=== PATIENT | male | born 1940 | race Caucasian/White ===

== ENCOUNTER → 2018-01-28 14:56 | Outpatient (CLI) | payer MEDICARE, OTHER, SELFPAY ==
[2017-04-22 08:35] VITALS: BMI 26.3
--- NOTE | 2018-01-28 15:00 | RAD_ITS ---
STUDY: X-RAY CHEST REASON FOR EXAM: Male, 77 years old. Pre pacer generator change. No complaints. TECHNIQUE: PA and lateral views of the chest. COMPARISON: January 16, 2017. FINDINGS: The lungs are mildly hyperexpanded. There is no acute infiltrate or mass. There is no demonstrated pleural abnormality. Normal size heart. Table cardiac pacemaker Normal mediastinum and chayo. Normal visualized pulmonary arteries. There is atherosclerotic calcification of the aortic arch with tortuosity. There are diffuse degenerative changes of the visualized thoracic spine. Normal visualized ribs, clavicles, and shoulders. There is no demonstrated abnormality of the visualized soft tissue structures of the upper abdomen. RAD/Chest PA and Lateral IMPRESSION: No acute cardiopulmonary disease or interval change. Electronically Signed: Dilan Torres DO at 15:22 EDT Tel [phone], Service support ,
== END ==
LOC: RAD 14:59
PROVIDERS: Family Provider Family Medicine; PCP Family Medicine; Visit Provider Nurse Practitioner Family
DX: I42.0 Dilated cardiomyopathy (principal); I43 Cardiomyopathy in diseases classified elsewhere; I49.3 Ventricular premature depolarization; I25.10 Atherosclerotic heart disease of native coronary artery without angina pectoris; Z95.0 Presence of cardiac pacemaker
CPT/HCPCS: 71046

== ENCOUNTER → 2018-02-04 08:33 | Day surgery (SDC) | payer MEDICARE, OTHER, SELFPAY ==
[2017-04-22 08:35] VITALS: BMI 26.3
[2018-01-28 15:23] LABS: Bacteria 0 SEEN /hpf (None Seen); Mucous, Urine 0 SEEN /hpf (<or=2+); Squamous Epithelial Cells - UA 0 SEEN /hpf (0-5); White Blood Cells 0 SEEN /hpf (0-5)
[2018-01-28 15:55] LABS: Color, Urine Yellow (Yellow); Glucose, Dipstick Normal (Normal); Ketone-Dipstick Negative (Negative); Leukocyte Esterase-Dipstick Negative /ul (Negative); Nitrite-Dipstick Negative (Negative); Occult Blood-Urine Negative /ul (Negative); Protein-Dipstick Negative (Negative); Urine Bilirubin Dipstick Negative (Negative); Urine Clarity Clear (Clear); Urine Urobilinogen Normal (Normal)
[2018-01-28 16:11] LABS: Red Blood Cells-Urine 0-5 SEEN /hpf (0-5)
[2018-01-28 17:17] LABS: Hematocrit 37.1 % (40-54); Hemoglobin 11.9 g/dl (13.0-16.5); Mean Corp Hgb Conc 32.1 g/gl (32-36); Mean Corpuscular Hgb 28.4 pg (27.0-32.0); Mean Corpuscular Volume 88.5 fL (80-94); Platelet Count 230 K/mm3 (150-450); RBC Distribution Width CV 14.4 % (11.6-14.6); RBC Distribution Width SD 46.2 fl (35.1-43.9); Red Blood Count 4.19 M/mm3 (4.6-6.2); White Blood Count 9.2 K/mm3 (4.4-11.0)
[2018-01-28 17:20] LABS: International Normalized Ratio 1.1; Prothrombin Time (Protime)PT. 13.7 SECONDS (11.7-14.9)
[2018-01-28 17:34] LABS: Scan Indicated on CBC? Y/N NO
[2018-01-28 17:48] LABS: Anion Gap 6 (5-15); BUN 20 mg/dL (7-18); BUN/Creat Ratio 13.3 RATIO (10-20); Calcium,Total 8.3 mg/dL (8.5-10.1); Chloride 105 mmol/L (98-107); EST Glomerular Filtration Rate 48 mL/min (>60); Est Glom Filt Rate - Afr Amer 58 mL/min (>60); Glucose 99 mg/dL (74-106); Potassium 3.4 mmol/L (3.5-5.1); Sodium Level 140 mmol/L (136-145)
[2018-02-03 13:59] VITALS: BMI 27.3
--- NOTE | 2018-02-04 11:19 | OP.PCM_ITS ---
Operative Report Date of Procedure: 02/04/18 Preoperative diagnosis is device at end of life for normal battery depletion. Postoperative diagnosis same as above. After informed consent and IV antibiotics the patient was brought to the [place] catheterization laboratory and the skin over the device was prepped and draped in the usual sterile manner. Intermittent boluses of Versed, fentanyl and propofol were used for sedation and analgesia as well as 1% subcutaneous lidocaine. An incision was made over the pre-existing device. Using blunt and Bovie dissection the pocket was opened and the device was removed. Careful attention was paid not to injure the pre-existing leads. The leads were removed from the device header and they were interrogated. There is normal lead function. Hemostasis was obtained. The pocket was flushed with antibiotic solution. The sponge and needle count were correct. The new device was brought to the field. The leads were placed in the appropriate position in the header of [facility] BiV pacemaker and secured by the set screw. The leads and the device were then placed in the pocket. The pocket was closed with a deep layer of running 2-0 Vicryl, a superficial layer of running 4-0 Vicryl, skin with Steri-Strips which were covered with a rolled 4 x 4 and Tegaderm. Patient left the room with the device programmed to proper parameters and there were no complications. All lead parameters were tested and found to be functionally normal. Lead and device serial and model numbers are available in the chart documents provided by the device company [employer] representative procedure summary.
== END ==
PROVIDERS: Nurse Practitioner Family; Family Provider Family Medicine; PCP Family Medicine; Visit Provider Internal Medicine Cardiovascular Disease
DX: I42.0 Dilated cardiomyopathy (principal); Z45.010 Encounter for checking and testing of cardiac pacemaker pulse generator [battery]; I25.10 Atherosclerotic heart disease of native coronary artery without angina pectoris; I49.3 Ventricular premature depolarization; I10 Essential (primary) hypertension; E78.2 Mixed hyperlipidemia; Z79.02 Long term (current) use of antithrombotics/antiplatelets; Z79.82 Long term (current) use of aspirin; Z79.1 Long term (current) use of non-steroidal anti-inflammatories (NSAID); Z79.899 Other long term (current) drug therapy; Z95.5 Presence of coronary angioplasty implant and graft; Z87.891 Personal history of nicotine dependence
CPT/HCPCS: 33229; 36415; 80048; 81001; 85027; 85610; 99152; 99153; J3010; J7040; J7050

== ENCOUNTER → 2018-02-18 15:10 | Outpatient (CLI) | payer MEDICARE, OTHER, SELFPAY ==
[2017-04-22 08:35] VITALS: BMI 26.3
[2018-02-18 16:08] LABS: ALB/GLOB Ratio 1.1 RATIO (0.9-2.4); AST(SGOT) 11 U/L (15-37); Alanine Aminotransfer ALT/SGPT 19 U/L (16-61); Albumin, Serum 3.8 g/dL (3.2-5.0); Alkaline Phosphatase 79 U/L (45-117); Anion Gap 8 (5-15); BUN 19 mg/dL (7-18); BUN/Creat Ratio 13.9 RATIO (10-20); Calcium,Total 8.2 mg/dL (8.5-10.1); Chloride 103 mmol/L (98-107); Creatinine, Serum 1.37 mg/dL (0.70-1.30); EST Glomerular Filtration Rate 53 mL/min (>60); Est Glom Filt Rate - Afr Amer 64 mL/min (>60); Globulin 3.4 g/dL (2.2-4.2); Glucose 134 mg/dL (74-106); Potassium 3.3 mmol/L (3.5-5.1); Protein, Total 7.2 g/dL (6.4-8.2); Sodium Level 139 mmol/L (136-145); Uric Acid 5.9 mg/dL (3.5-7.2)
== END ==
PROVIDERS: Family Provider Family Medicine; PCP Family Medicine; Visit Provider Family Medicine
DX: E11.9 Type 2 diabetes mellitus without complications (principal); M10.9 Gout, unspecified
CPT/HCPCS: 36415; 80053; 84550

== ENCOUNTER → 2018-07-17 07:38 | Outpatient (CLI) | payer MEDICARE, OTHER, SELFPAY ==
[2017-04-22 08:35] VITALS: BMI 26.3
[2018-07-17 09:03] LABS: AST(SGOT) 14 U/L (15-37); Alanine Aminotransfer ALT/SGPT 23 U/L (16-61); Albumin, Serum 3.8 g/dL (3.2-5.0); Alkaline Phosphatase 65 U/L (45-117); Anion Gap 11 (5-15); BUN 24 mg/dL (7-18); BUN/Creat Ratio 15.1 RATIO (10-20); Bilirubin, Direct 0.13 mg/dL (0.00-0.30); Calcium,Total 8.9 mg/dL (8.5-10.1); Chloride 107 mmol/L (98-107); Cholesterol 192 mg/dL (200); Creatinine, Serum 1.59 mg/dL (0.70-1.30); EST Glomerular Filtration Rate 45 mL/min (>60); Est Glom Filt Rate - Afr Amer 54 mL/min (>60); Globulin 3.1 g/dL (2.2-4.2); Glucose 125 mg/dL (74-106); High Density Lipoprotein 43 mg/dL; Potassium 3.2 mmol/L (3.5-5.1); Protein, Total 6.9 g/dL (6.4-8.2); Sodium Level 144 mmol/L (136-145); Triglycerides 255 mg/dL; Very Low Density Lipoprotein 51 mg/dL (5-40)
== END ==
PROVIDERS: Family Provider Family Medicine; PCP Family Medicine; Visit Provider Internal Medicine Cardiovascular Disease
DX: I25.10 Atherosclerotic heart disease of native coronary artery without angina pectoris (principal); I10 Essential (primary) hypertension; E78.2 Mixed hyperlipidemia
CPT/HCPCS: 36415; 80048; 80061; 80076

== ENCOUNTER → 2019-03-11 07:56 | Outpatient (CLI) | payer MEDICARE, OTHER, SELFPAY ==
[2017-04-22 08:35] VITALS: BMI 26.3
[2019-01-21 13:19] VITALS: BMI 27.6
[2019-03-11 10:03] LABS: AST(SGOT) 20 U/L (15-37); Alanine Aminotransfer ALT/SGPT 42 U/L (16-61); Albumin, Serum 4.3 g/dL (3.2-5.0); Alkaline Phosphatase 61 U/L (45-117); Bilirubin, Direct 0.12 mg/dL (0.00-0.30); Cholesterol 232 mg/dL (200); High Density Lipoprotein 45 mg/dL; Protein, Total 7.3 g/dL (6.4-8.2); Triglycerides 297 mg/dL; Very Low Density Lipoprotein 59 mg/dL (5-40)
== END ==
PROVIDERS: Family Provider Family Medicine; PCP Family Medicine; Referring Provider Internal Medicine Cardiovascular Disease; Visit Provider Internal Medicine Cardiovascular Disease
DX: I25.10 Atherosclerotic heart disease of native coronary artery without angina pectoris (principal); E78.2 Mixed hyperlipidemia
CPT/HCPCS: 36415; 80061; 80076

== ENCOUNTER → 2019-05-11 07:42 | Outpatient (CLI) | payer MEDICARE, OTHER, SELFPAY ==
[2017-04-22 08:35] VITALS: BMI 26.3
[2019-04-26 09:17] VITALS: BMI 27.6
[2019-05-11 08:59] LABS: AST(SGOT) 15 U/L (15-37); Alanine Aminotransfer ALT/SGPT 32 U/L (16-61); Albumin, Serum 3.9 g/dL (3.2-5.0); Alkaline Phosphatase 85 U/L (45-117); Bilirubin, Direct 0.17 mg/dL (0.00-0.30); Cholesterol 131 mg/dL (200); Globulin 3.1 g/dL (2.2-4.2); High Density Lipoprotein 49 mg/dL; Triglycerides 177 mg/dL; Very Low Density Lipoprotein 35 mg/dL (5-40)
== END ==
PROVIDERS: Family Provider Family Medicine; PCP Family Medicine; Referring Provider Internal Medicine Cardiovascular Disease; Visit Provider Internal Medicine Cardiovascular Disease
DX: E78.5 Hyperlipidemia, unspecified (principal)
CPT/HCPCS: 36415; 80061; 80076

== ENCOUNTER → 2019-07-01 07:28 | Outpatient (CLI) | payer MEDICARE, OTHER, SELFPAY ==
[2017-04-22 08:35] VITALS: BMI 26.3
[2019-04-26 09:17] VITALS: BMI 27.6
[2019-07-01 11:10] LABS: Anion Gap 6 (5-15); BUN 24 mg/dL (7-18); BUN/Creat Ratio 15.8 RATIO (10-20); Calcium,Total 8.6 mg/dL (8.5-10.1); Chloride 109 mmol/L (98-107); Cholesterol 127 mg/dL (200); Creatinine, Serum 1.52 mg/dL (0.70-1.30); EST Glomerular Filtration Rate 47 mL/min (>60); Est Glom Filt Rate - Afr Amer 57 mL/min (>60); Glucose 125 mg/dL (74-106); High Density Lipoprotein 46 mg/dL; PSA,Total - Annual Screen 2.82 ng/mL (0.00-4.00); Potassium 3.5 mmol/L (3.5-5.1); Sodium Level 142 mmol/L (136-145); Triglycerides 128 mg/dL; Very Low Density Lipoprotein 26 mg/dL (5-40)
== END ==
PROVIDERS: Family Provider Family Medicine; PCP Family Medicine; Referring Provider Family Medicine; Visit Provider Family Medicine
DX: Z00.00 Encounter for general adult medical examination without abnormal findings (principal); E78.5 Hyperlipidemia, unspecified; Z12.5 Encounter for screening for malignant neoplasm of prostate
CPT/HCPCS: 36415; 80048; 80061; 84153; G0103

== ENCOUNTER → 2020-04-04 12:16 | Outpatient (CLI) | payer MEDICARE, OTHER, SELFPAY ==
[2017-04-22 08:35] VITALS: BMI 26.3
[2019-08-03 13:03] VITALS: BMI 28.3
[2020-04-04 15:27] LABS: Absolute Lymphocyte Count 2.27 X10^3/uL (0.83-4.51); Absolute Neutrophil Count 5.5 X10^3/uL (2.0-7.7); Basophil# 0.06 X10^3/uL; Basophil% 0.7 % (0-1); Eosinophil# 0.22 X10^3/uL; Eosinophils% 2.5 % (0-5); Hematocrit 39.3 % (40-54); Hemoglobin 12.2 g/dL (13.0-16.5); Lymphocyte # 2.27 X10^3/ul (4.0); Lymphocyte % 25.4 % (19-41); Mean Corpuscular Hgb 28.3 pg (27.0-32.0); Mean Corpuscular Volume 91.2 fL (80-94); Mean Platelet Vol. 10.9 fl (6.2-12.0); Monocyte# 0.88 X10^3/uL; Monocyte% 9.8 % (0-10); NRBC Flagged by Analyzer 0 % (0-5); Neutrophil % 61.4 % (47-70); Platelet Count 223 K/mm3 (150-450); RBC Distribution Width CV 14.1 % (11.6-14.6); RBC Distribution Width SD 47.3 fl (35.1-43.9); Red Blood Count 4.31 M/mm3 (4.6-6.2)
[2020-04-04 15:38] LABS: Anion Gap 6 (5-15); BUN 21 mg/dL (7-18); Chloride 107 mmol/L (98-107); Creatinine, Serum 1.62 mg/dL (0.70-1.30); EST Glomerular Filtration Rate 44 mL/min (>60); Est Glom Filt Rate - Afr Amer 53 mL/min (>60); Glucose 151 mg/dL (74-106); Potassium 3.8 mmol/L (3.5-5.1); Sodium Level 140 mmol/L (136-145)
== END ==
PROVIDERS: PCP Family Medicine; Referring Provider Family Medicine; Visit Provider Family Medicine
DX: R42 Dizziness and giddiness (principal)
CPT/HCPCS: 36415; 80048; 85025

== ENCOUNTER 2020-06-29 02:45 | Observation (INO) | payer MEDICARE, OTHER, SELFPAY ==
[2017-04-22 08:35] VITALS: BMI 26.3
[2019-08-03 13:03] VITALS: BMI 28.3
[2020-06-29] VITALS (14 sets, daily range): BP systolic 110–175; BP diastolic 59–91; PULSE 60–79; RESP 16–18; TEMP 36.3–37; O2SAT 94–97; BMI 27.5; BMI 26.0
--- NOTE | 2020-06-29 03:02 | CT_ITS ---
STUDY: CT BRAIN WITHOUT CONTRAST REASON FOR EXAM: Male, 80 years old. ALTERED MENTAL STATUS AND CONFUSION -- HX: HTN,HLD,PACEMAKER RADIATION DOSAGE (If Supplied By Facility): CTDIvol = ( 44.99 ) mGy, DLP = ( 829.85 ) mGycm TECHNIQUE: Transaxial CT imaging of the brain was performed without administration of intravenous contrast material. Individualized dose optimization techniques were used for this CT. COMPARISON: No relevant priors. FINDINGS: Normal soft tissue structures. Normal calvarium. There is mild cerebral atrophy with widening of the extra-axial spaces and ventricular dilatation. There are areas of decreased attenuation within the white matter tracts of the supratentorial brain, consistent with microvascular disease changes. Normal basal ganglia and thalami. Normal brainstem. There is mild cerebellar atrophy. There is no intracranial hemorrhage. There are no findings of an acute ischemic infarction. Normal visualized paranasal sinuses. There is partial calcification of the cavernous carotid arteries. CT/Brain/Head without Contrast IMPRESSION: Atrophy No Visualized evidence of acute hemorrhage infarct or edema. Electronically Signed: Larisa Dobbs MD at 4:00 EDT Tel , Service support ,
--- NOTE | 2020-06-29 03:02 | RAD_ITS ---
STUDY: X-RAY CHEST REASON FOR EXAM: Male, 80 years old. AMS TECHNIQUE: Single AP portable view x2 of the chest. COMPARISON: 01/28/2018 chest x-ray FINDINGS: There is a left-sided pacer defibrillator. The lungs are clear and expanded. There is no demonstrated pleural abnormality. There is mild cardiac enlargement. Normal mediastinum and chayo. Normal visualized pulmonary arteries. Normal visualized aortic arch and descending thoracic aorta. Normal visualized thoracic spine. Normal visualized ribs, clavicles, and shoulders. There is no demonstrated abnormality of the visualized soft tissue structures of the upper abdomen. RAD/Chest 1 View (Portable) IMPRESSION: Mild/moderate cardiac enlargement pacemaker, no visualized acute focal infiltrate. Electronically Signed: Larisa Dobbs MD at 4:22 EDT Tel , Service support ,
--- NOTE | 2020-06-29 03:02 | EKG12_ITS ---
Test Reason : Blood Pressure : / mmHG Vent. Rate : 084 BPM Atrial Rate : 068 BPM P-R Int : 174 ms QRS Dur : 158 ms QT Int : 434 ms P-R-T Axes : 000 -49 097 degrees QTc Int : 512 ms AV dual-paced rhythm Abnormal ECG Confirmed by JASPER BAJWA ([id number]), acquisition editor SHIV SALAZAR ([id number]) on 07/02/2020 2:05:56 PM Referred By: Confirmed By:JASPER BAJWA
[2020-06-29 03:10] LABS: Absolute Lymphocyte Count 2.96 X10^3/uL (0.83-4.51); Absolute Neutrophil Count 5.5 X10^3/uL (2.0-7.7); Basophil# 0.04 X10^3/uL; Basophil% 0.4 % (0-1); Eosinophil# 0.25 X10^3/uL; Eosinophils% 2.6 % (0-5); Hematocrit 41.5 % (40-54); Hemoglobin 13.6 g/dL (13.0-16.5); Lymphocyte # 2.96 X10^3/ul (4.0); Lymphocyte % 30.4 % (19-41); Mean Corp Hgb Conc 32.8 g/dL (32-36); Mean Corpuscular Hgb 29.3 pg (27.0-32.0); Mean Corpuscular Volume 89.4 fL (80-94); Mean Platelet Vol. 10.4 fl (6.2-12.0); Monocyte# 0.94 X10^3/uL; Monocyte% 9.7 % (0-10); NRBC Flagged by Analyzer 0 % (0-5); Neutrophil # 5.52 X10^3/uL (2.7-7.7); Neutrophil % 56.6 % (47-70); Platelet Count 217 K/mm3 (150-450); RBC Distribution Width SD 45.7 fl (35.1-43.9); Red Blood Count 4.64 M/mm3 (4.6-6.2); White Blood Count 9.7 K/mm3 (4.4-11.0)
[2020-06-29 03:12] LABS: Prothrombin Time (Protime)PT. 13.1 SECONDS (11.7-14.9)
[2020-06-29 03:13] LABS: Partial Thromboplast Time 25.9 Seconds (24.1-36.2)
[2020-06-29 03:28] LABS: ALB/GLOB Ratio 1.2 RATIO (0.9-2.4); AST(SGOT) 17 U/L (15-37); Alanine Aminotransfer ALT/SGPT 29 U/L (16-61); Albumin, Serum 4.1 g/dL (3.2-5.0); Alkaline Phosphatase 83 U/L (45-117); Anion Gap 9 (5-15); BUN 23 mg/dL (7-18); BUN/Creat Ratio 12.8 RATIO (10-20); Calcium,Total 8.6 mg/dL (8.5-10.1); Chloride 106 mmol/L (98-107); EST Glomerular Filtration Rate 39 mL/min (>60); Est Glom Filt Rate - Afr Amer 47 mL/min (>60); Estimated Creatinine Clearance 34.73 ml/min; Globulin 3.4 g/dL (2.2-4.2); Glucose 184 mg/dL (74-106); Potassium 3.4 mmol/L (3.5-5.1); Protein, Total 7.5 g/dL (6.4-8.2); Sodium Level 140 mmol/L (136-145)
--- NOTE | 2020-06-29 03:30 | ED.DCSUM_ITS ---
History of Present Illness Chief Complaint: Alt LOC Informant: Patient, Significant Other Onset: Today Narrative: Patient is an 80-year-old male with history of coronary artery disease and CKD presenting from home via EMS for altered mental status. About 45 minutes to 1 hour prior to arrival patient woke his up. She thought he needed to use the restroom so she tried to get him out of bed however he was confused and very weak. She states it was a generalized weakness and she did not notice any focal weakness. The was concerned he might be having a stroke so she called 911. Per EMS patient was quite out of it and uncooperative. He slowly did seem to come around during transport. Patient is still not at his baseline. He is normally ANO x3. Patient is complained of a headache but denies any other complaints at this time. There is no reports of any falls or injuries. He was fine when he went to bed last night. There have been no recent medication changes. Patient denies associated chest pain, shortness of breath or difficulty breathing. No other complaints at this time. Past Medical History - Allergies and Home Meds Allergies/Adverse Reactions: Allergies clopidogrel [From Plavix] Allergy (Verified 06/29/20 02:53) Unknown lisinopril Allergy (Verified 06/29/20 02:53) Unknown Primary Care Physician: Danny Velasquez MD [Primary Care Provider] - Past Medical History: - - Hyperlipidemia, hypertension, dilated cardiomyopathy, coronary artery disease status post stent placement Surgical History: - - Pacemaker Lives: Spouse/ Significant Other Smoking Status: Former smoker - Family History Maternal Family History: Family History (Last Reviewed 04/26/19 @ 09:[address] Elbert Marroquin DO) Mother CVA (cerebral vascular accident) Brother Cancer Hypertension Brother Cancer Sister Cancer Family History: Reports: Heart Disease, Hypertension, Stroke Paternal Family History: Family History (Last Reviewed 04/26/19 @ 09:[address] Elbert Marroquin DO) Mother CVA (cerebral vascular accident) Brother Cancer Hypertension Brother Cancer Sister Cancer Review of Systems General: Denies: Chills, Fever, Sweats Eyes: Denies: Visual changes - bilaterally, Diplopia ENT: Denies: Rhinorrhea, Sore throat Cardiovascular: Denies: Chest pain, Palpitations Respiratory: Denies: Dyspnea, Cough, Dyspnea on exertion Gastrointestinal: Denies: Abdominal pain, Nausea, Vomiting, Diarrhea, Melena, Hematochezia Genitourinary: Denies: Dysuria, Hematuria, Frequency Musculoskeletal: Denies: Back pain, Extremity Pain Skin: Denies: Rash, Wounds Neurological: Reports: Headache, Weakness - Generalized, - - Confusion. Denies: Numbness Physical Exam Vital Signs/Narrative: Vital Signs Temp Pulse Resp BP Pulse Ox 06/29/20 02:46 97.3 F L 77 16 175/91 H 94 Inital Vital Signs reviewed: Yes General: Well nourished, Well developed, No Acute Distress Head: Normocephalic, Atraumatic Eyes: Perrl, EOMI ENT: Moist mucous membranes, No rhinorrhea, TM's clear - Right?cerumen impaction Neck: Supple, Nontender Cardiovascular: Regular rate, Regular rhythm, No murmurs Respiratory: No distress, CTA bilaterally, Chest nontender Abdomen: Soft, Nontender, Nondistended, Normal bowel sounds Back: Nontender, Normal Inspection Extremities: Nontender, No edema Skin: Normal color, No rash Neurological: Alert, Cranial nerves II-XII grossly intact, Normal Strength, Normal Sensation, Disoriented - Oriented to self and time but not to place, - - Patient mildly somnolent but no focal neurologic deficits noted Psychological: Normal affect, Normal Mood Diagnostic/Tx/Re-eval Chest X-Ray - ED: 1 View, Read by Radiologist, No Acute Disease Clinical Impression(s) from Imaging Studies Brain CT 06/29/20 03:02 IMPRESSION: Atrophy No Visualized evidence of acute hemorrhage infarct or edema. Electronically Signed: Larisa Dobbs MD at 4:00 EDT Tel , Service support , Chest X-Ray 06/29/20 03:02 IMPRESSION: Mild/moderate cardiac enlargement pacemaker, no visualized acute focal infiltrate. Electronically Signed: Larisa Dobbs MD at 4:22 EDT Tel , Service support , Laboratory Data 06/29/20 06/29/20 06/29/20 02:58 02:58 02:58 WBC 9.7 RBC 4.64 Hgb 13.6 Hct 41.5 MCV 89.4 MCH 29.3 MCHC 32.8 RDW Std Deviation 45.7 H RDW Coeff of Esthela 14.0 Plt Count 217 MPV 10.4 Immature Gran % (Auto) 0.300 Neut % (Auto) 56.6 Lymph % (Auto) 30.4 [place] % (Auto) 9.7 Eos % (Auto) 2.6 Baso % (Auto) 0.4 Absolute Neuts (auto) 5.5 Absolute Lymphs (auto) 2.96 Nucleated RBC % 0 PT 13.1 INR 1.0 APTT 25.9 Sodium 140 Potassium 3.4 L Chloride 106 Carbon Dioxide 25.0 Anion Gap 9 BUN 23 H Creatinine 1.80 H Estim Creat Clear Calc 34.73 Est GFR (MDRD) Af Amer 47 L Est GFR (MDRD) Non-Af 39 L BUN/Creatinine Ratio 12.8 Glucose 184 H Calcium 8.6 Total Bilirubin 0.50 AST 17 ALT 29 Alkaline Phosphatase 83 Troponin I < 0.015 Total Protein 7.5 Albumin 4.1 Globulin 3.4 Albumin/Globulin Ratio 1.2 Urine Color Urine Clarity Urine pH Ur Specific [place] Urine Protein Urine Glucose (UA) Urine Ketones Urine Occult Blood Urine Nitrite Urine Bilirubin Urine Urobilinogen Ur Leukocyte Esterase Urine RBC Urine WBC Ur Squamous Epith Cells Urine Bacteria Urine Mucus 06/29/20 03:55 WBC RBC Hgb Hct MCV MCH MCHC RDW Std Deviation RDW Coeff of Esthela Plt Count MPV Immature Gran % (Auto) Neut % (Auto) Lymph % (Auto) [place] % (Auto) Eos % (Auto) Baso % (Auto) Absolute Neuts (auto) Absolute Lymphs (auto) Nucleated RBC % PT INR APTT Sodium Potassium Chloride Carbon Dioxide Anion Gap BUN Creatinine Estim Creat Clear Calc Est GFR (MDRD) Af Amer Est GFR (MDRD) Non-Af BUN/Creatinine Ratio Glucose Calcium Total Bilirubin AST ALT Alkaline Phosphatase Troponin I Total Protein Albumin Globulin Albumin/Globulin Ratio Urine Color Straw Urine Clarity Clear Urine pH 7.0 Ur Specific [place] 1.010 Urine Protein Negative Urine Glucose (UA) Normal Urine Ketones Negative Urine Occult Blood Negative Urine Nitrite Negative Urine Bilirubin Negative Urine Urobilinogen Normal Ur Leukocyte Esterase Negative Urine RBC 0 SEEN Urine WBC 0 SEEN Ur Squamous Epith Cells 0 SEEN Urine Bacteria 0 SEEN Urine Mucus 0 SEEN - Rhythm Strip Rhythm Strip: paced Rate: 84 Ectopy: None - EKG Initial EKG Interpretation: Paced, - - AV dual paced rhythm at a rate of 84 Normal intervals Nonspecific T wave changes Prior: Unchanged - Medical Decision Making Patient is evaluated after an episode of decreased responsiveness and generalized weakness. In the ER he seems to be improving but still slightly confused. states he is usually much more alert. Patient is complained of a mild headache but denies any other complaints at this time. He has nonfocal neurologic exam. I do not think this is a stroke. CT of the brain does not show any acute intracranial process. His work-up is largely negative. He does have an elevated creatinine however patient does have a history of CKD. Patient is ambulating emergency room and does have some mild lightheadedness but then becomes more steady on his feet. This is an improvement from how he was just prior to arrival. He is orthostatic vital signs are negative. Patient's age, c omorbidities and concerning presentation I do think he would benefit from an observation to rule out more serious cause of this episode. Differential does include cerebral vascular disease, coronary artery disease and possibly even seizure. Patient and are agreeable with this plan. Patient is given a full dose of aspirin in the emergency room. ED Disposition - Plan for ED Patient: Disposition: [facility] Diagnosis: Encephalopathy acute, CKD (chronic kidney disease), stage III, Generalized weakness Referrals: Danny Velasquez MD [Primary Care Provider] -
[2020-06-29 04:00] LABS: Bacteria 0 SEEN /hpf (None Seen); Mucous, Urine 0 SEEN /hpf (<or=2+); Red Blood Cells-Urine 0 SEEN /hpf (0-5); Squamous Epithelial Cells - UA 0 SEEN /hpf (0-5); White Blood Cells 0 SEEN /hpf (0-5)
[2020-06-29 04:01] LABS: Color, Urine Straw (Yellow); Glucose, Dipstick Normal (Normal); Ketone-Dipstick Negative (Negative); Leukocyte Esterase-Dipstick Negative /ul (Negative); Nitrite-Dipstick Negative (Negative); Occult Blood-Urine Negative /ul (Negative); Protein-Dipstick Negative (Negative); Urine Bilirubin Dipstick Negative (Negative); Urine Clarity Clear (Clear); Urine Urobilinogen Normal (Normal)
--- NOTE | 2020-06-29 05:23 | PCM.HP.STD ---
Problem List (1) Encephalopathy acute Status: Acute (2) Hyperglycemia Status: Acute (3) Mixed hyperlipidemia Status: Chronic (4) Essential hypertension Status: Chronic (5) Nonischemic cardiomyopathy Status: Chronic (6) Atherosclerotic heart disease of [place] coronary artery without angina pectoris Status: Chronic Qualifiers: [place] vs. transplanted heart: [place] heart Qualified Code(s): I25.10 - Atherosclerotic heart disease of [place] coronary artery without angina pectoris Comment: S/P PTCA/JUSTYN to RCA in April 2017; (7) Hypokalemia Status: Chronic (8) Dilated cardiomyopathy Status: Chronic (9) Biventricular cardiac pacemaker in situ Status: Chronic Comment: BIV-Pacemaker Implant February 2004; [facility] 01/13/12, BiVPM generator change (Medtronic Syncra INSPECTOR BICYCLE-P) (10) CKD (chronic kidney disease), stage III Status: Chronic History of Present Illness Date of Admission: 06/29/20 Chief Complaint: Confusion The patient is an 80 y/o M w/ PMHx: CKD stage III, HTN, HLD, CAD s/p PTCA JUSTYN mid RCA 2016, Dilated Cardiomyopathy s/p biventricular pacemaker placement, Hx frequent PVC s/p PVC ablation, Gout, OA, Former Tobacco use who presents to the [facility] ED on 06/29/20 with history of awakening approximately 1 hour prior to 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 Patient is slowly more alert in the emergency room but not to his baseline of ANO x3 and also reporting headache. Work-up in the ED included T 97.3, heart rate 77, BP 175/91, respiratory rate 16, 94% on room air, CBC with WC 9.7, hemoglobin 13.6, platelet 270 without shift, unremarkable coags, CMP with potassium 3.4, BUN/creatinine 23/1.80, glucose 184,, troponin < 0.015, EKG paced with no acute evidence of ischemia, chest x-ray with mild to moderate cardiac enlargement with pacemaker with no visualized acute focal infiltrate, CT head with atrophy evident with no visualized evidence of acute intracranial findings, urinalysis unremarkable, moderate appearing orthostatic VS assessment. Past Medical History Past Medical History (Chronic Problems): Chronic Problems (Last Reviewed 04/26/19 @ 09:[address] Elbert Marroquin DO) CKD (chronic kidney disease), stage III (Chronic) Mixed hyperlipidemia (Chronic) Essential hypertension (Chronic) Nonischemic cardiomyopathy (Chronic) Presence of stent in coronary artery (Chronic 04/21/17) [facility] w/PTCA/JUSTYN to mid RCA 04/21/17 Atherosclerotic heart disease of [place] coronary artery without angina pectoris (Chronic) S/P PTCA/JUSTYN to RCA in April 2017; Hypokalemia (Chronic) Cardiomyopathy in other diseases classified elsewhere (Chronic) Abnormal stress test (Chronic) Frequent PVCs (Chronic) Dilated cardiomyopathy (Chronic) Biventricular cardiac pacemaker in situ (Chronic) BIV-Pacemaker Implant February 2004; [facility] 01/13/12, BiVPM generator change (Medtronic Syncra INSPECTOR BICYCLE-P) Medical History: Medical History (Last Reviewed 04/26/19 @ 09:[address] Elbert Marroquin DO) Mixed hyperlipidemia (Chronic) E78.2 Essential hypertension (Chronic) I10 Premature ventricular contraction (Acute) I49.3 Nonischemic cardiomyopathy (Chronic) I42.8 Atherosclerotic heart disease of [place] coronary artery without angina pectoris (Chronic) I25.10 S/P PTCA/JUSTYN to RCA in April 2017; Hypokalemia (Chronic) E87.6 Cardiomyopathy in other diseases classified elsewhere (Chronic) I43 Frequent PVCs (Chronic) I49.3 Dilated cardiomyopathy (Chronic) I42.0 Biventricular cardiac pacemaker in situ (Chronic) Z95.0 BIV-Pacemaker Implant February 2004; [facility] 01/13/12, BiVPM generator change (Medtronic Syncra INSPECTOR BICYCLE-P) Gout M10.9 HTN (hypertension) (Inactive) I10 Hyperlipemia (Inactive) E78.5 Allergies clopidogrel [From Plavix] Allergy (Verified 06/29/20 02:53) Unknown lisinopril Allergy (Verified 06/29/20 02:53) Unknown Home Medications: Ambulatory Orders Medication Instructions Recorded Carvedilol [Coreg] 25 mg PO BID 03/31/17 Dorzolamide HCl [Trusopt] 1 drp OP DAILY 03/31/17 Aspirin E.C. [Ecotrin] 81 mg PO DAILY@0800 tab 04/22/17 celecoxib 200 mg capsule 200 mg PO DAILY #30 cap 10/18/18 clopidogrel 75 mg tablet 75 mg PO QDAY #90 tab 08/30/19 losartan 25 mg tablet 50 mg PO BID #360 tab 03/08/20 amlodipine 2.5 mg tablet 2.5 mg PO QDAY #90 tab 04/02/20 atorvastatin 20 mg tablet 20 mg PO QHS #90 tab 04/16/20 Furosemide 40 mg PO BID 06/29/20 Surgical History: Surgical History (Last Updated 11/30/19 @ 15:07 by Shyla Villanueva) Presence of stent in coronary artery (Chronic) Onset Date: 04/21/17 Z95.5 [facility] w/PTCA/JUSTYN to mid RCA 04/21/17 Postsurgical percutaneous transluminal coronary angioplasty (PTCA) status Z98.61 [facility] w/PTCA/JUSTYN to mid RCA 04/21/17 History of cardiac radiofrequency ablation Onset Date: ~05/18/16 Z98.890 Surgical History: - - Pacemaker, PCI x 1. Psychiatric History: No pertinent psych hx Lives: Spouse/ Significant Other Smoking Status: Former smoker Tobacco Use: Non-smoker Alcohol: None Drugs: None - *Family History Maternal Family History: Family History (Last Reviewed 04/26/19 @ 09:[address] Elbert Marroquin DO) Mother CVA (cerebral vascular accident) Brother Cancer Hypertension Brother Cancer Sister Cancer History Items: Heart Disease, Hypertension, Stroke Paternal Family History: Family History (Last Reviewed 04/26/19 @ 09:[address] Elbert Marroquin DO) Mother CVA (cerebral vascular accident) Brother Cancer Hypertension Brother Cancer Sister Cancer History Items: - - Father passed secondary to suicide during the depression and per patient report had no market medical history including heart disease, diabetes or cancer. Review of Systems Constitutional: Reports: Weakness, Fatigue. Denies: Anorexia, Chills, Fever, Malaise, Weight Change HEENT: Denies: Head Aches, Sinus Congestion, Sinus Drainage Cardiovascular: Denies: Chest Pain, Palpitations Respiratory: Denies: Cough, Shortness of breath at rest, Sputum production Gastrointestinal: Denies: Abdominal Pain, Nausea, Vomiting Genitourinary: Denies: Dysuria Musculoskeletal: Reports: Back Pain, Joint Pain. Denies: Joint Tenderness Skin: Reports: Skin Changes. Denies: Rash, Wounds Neurological: Reports: Confusion. Denies: Focal weakness, Numbness, Tingling Psychiatric: Denies: Anxiety, Depression, Homicidal Ideations, Suicidal Ideations Hematologic/ Lymphatic: Reports: Easy Bruising, Easy Bleeding VTE Information - Inpt Only VTE Present on Admission: No VTE Mechan Device Prophylaxis: SCD's VTE Pharm Prophylaxis ordered?: Yes Patient Problems: Active and Suspected Problems (Last Reviewed 04/26/19 @ 09:[address] Elbert Marroquin, DO) Encephalopathy acute (Acute) Hyperglycemia (Acute) Generalized weakness (Acute) Subjective: Patient seated upright in ED bed, fatigued, able to answer orientation questions including month, place, president however he did get the year wrong initially but was able to give the correct year later in the exam. Objective: Physical Examination: General: awake, alert, oriented x 3/4 but eventually gave correct year and cooperative, seated upright in ED bed in no apparent distress, fatigued. Skin: normal color, turgor, no icterus, cyanosis except except affected skin changes in patient's age status. HEENT: AT/NC, EOMI, PERRLA, moderately dry MM, no carotid bruits or JVD noted. Lungs: CTA bilaterally, moderate effort, mild decrease BL bases, no rales, ronchi or wheezing. Heart: Regular rate and rhythm; no gallop, rub audible. Abdomen: soft, NTTP, ND, normal BS, no HSM. Extremities: no cyanosis, clubbing, or edema. Neurological: patient awake, alert, oriented as noted; cognitive function improving but not exactly baseline intact; pupils equally reactive to light and accomodation; cranial nerves II-XII grossly normal, moving all 4 extremities, no focal deficits, strength preserved, sensation intact, finger-nose and heel sandhu appropriate, negative Babinski. Psychiatric: affect appears fatigued otherwise normal, no acute evidence of depressive or anxiety feelings. - Physical Exam Vitals/I&O's: Vital Signs Temp Pulse Resp BP Pulse Ox 97.3 F L 68 16 134/70 H 96 06/29/20 02:46 06/29/20 05:01 06/29/20 04:58 06/29/20 05:01 06/29/20 04:58 Oxygen Delivery Method Room Air Weight: 202 lb 13.204 oz Body Mass Index (BMI) 27.5 Laboratory Results 06/29/20 02:58: WBC 9.7, RBC 4.64, Hgb 13.6, Hct 41.5, MCV 89.4, MCH 29.3, MCHC 32.8, RDW Std Deviation 45.7 H, RDW Coeff of [place] 14.0, Plt Count 217, MPV 10.4, Immature Gran % (Auto) 0.300, Neut % (Auto) 56.6, Lymph % (Auto) 30.4, [place] % (Auto) 9.7, Eos % (Auto) 2.6, Baso % (Auto) 0.4, Absolute Neuts (auto) 5.5, Absolute Lymphs (auto) 2.96, Nucleated RBC % 0 06/29/20 02:58: PT 13.1, INR 1.0, APTT 25.9 06/29/20 02:58: Sodium 140, Potassium 3.4 L, Chloride 106, Carbon Dioxide 25.0, Anion Gap 9, BUN 23 H, Creatinine 1.80 H, Estim Creat Clear Calc 34.73, Est GFR (MDRD) Af Amer 47 L, Est GFR (MDRD) Non-Af 39 L, BUN/Creatinine Ratio 12.8, Glucose 184 H, Calcium 8.6, Total Bilirubin 0.50, AST 17, ALT 29, Alkaline Phosphatase 83, Troponin I < 0.015, Total Protein 7.5, Albumin 4.1, Globulin 3.4, Albumin/Globulin Ratio 1.2 06/29/20 03:55: Urine Color Straw, Urine Clarity Clear, Urine pH 7.0, Ur Specific [place] 1.010, Urine Protein Negative, Urine Glucose (UA) Normal, Urine Ketones Negative, Urine Occult Blood Negative, Urine Nitrite Negative, Urine Bilirubin Negative, Urine Urobilinogen Normal, Ur Leukocyte Esterase Negative, Urine RBC 0 SEEN, Urine WBC 0 SEEN, Ur Squamous Epith Cells 0 SEEN, Urine Bacteria 0 SEEN, Urine Mucus 0 SEEN Assessment/Plan All Active Problems (Last Reviewed 04/26/19 @ 09:[address] 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 1. Encephalopathy, Unclear Specific Etiology concerning for possible ? TIA/CVA: Will admit to PCU, given history of pacemaker patient not MRI candidate, defer CTA head and neck given renal disease unless further altered/worsened status, will obtain carotid US, ECHO, PT/OT/Speech/Nutrition evaluation per protocol. Will allow permissive HTN temporarily, judiciously hydrate, maintain on asa/plavix, statin w/ AM FLP, fall precautions. Will perform pacer assessment. Mag, TSH, HgbA1c, FLP pending. Ammonia level requested. May consider repeat CT head if needed. Given improving will defer ABG. May also consider EEG if no other etiology noted as patient could have had seizure and resulting confusion with postictal state. 2. Hypokalemia: Admission K+ 3.4, magnesium level requested, supplementation given, repeat level in AM. 3. Hyperglycemia: Admission glucose 184, hemoglobin A1c requested. 4. Chronic Kidney Disease Stage III: Admission BUN/Cr 23/1.80, baseline renal function 1.5-1.8 on the upper end, repeat BMP in AM. 5. CAD: s/p mid RCA PCI JUSTYN 2016, following with Dr. Easley, continue aspirin, Plavix, statin, temporarily hold home Coreg, losartan regimen for permissive HTN, resume once appropriate. 6. Dilated cardiomyopathy: Most recent echo noted in cardiology notes to be 07/2016 with EF 45% at that time, no apparent more recent noted in [facility], continue aspirin, Plavix, statin, temporarily hold Coreg, losartan, Lasix regimen for permissive HTN, resume once appropriate. 7. History frequent PVCs: Status post PVC ablation procedure at [facility] 05/28/2016, s/p pacemaker placement, most recently check noted 04/25/20. 8. Hypertension: Temporarily hold home regimen including amlodipine, Coreg, Lasix, losartan for permissive HTN, resume once appropriate. 9. Hyperlipidemia: Continue home statin regimen. 10. Former tobacco use: Encourage continued tobacco cessation. 11. DVT prophylaxis: SCDs, Lovenox. CODE status: Patient HCPOA is his and living will is currently in place. Discussed CODE status at length including difference between FULL code, DNR-CCA and DNR-CC status. Following discussions about the differences in these status, requested full CODE STATUS. Advanced Care Planning Face to Face Time: 16 minutes. OBSV E&M: 62130 Initial observation care L3 Procedures: 66466 Advncd Care Plan 30 Min
[2020-06-29] MEDS: Aspirin 81 MG TAB.CHEW 324 MG PO (05:58)
[2020-06-29] MEDS: 0.9% Normal Saline 1,000 ML 100 ML IV ×2 (06:07→07:01)
--- NOTE | 2020-06-29 06:28 | ECHOD_ITS ---
Reason For Study: Arrhythmia Procedure This was a 2D Doppler, Color Flow transthoracic echocardiogram. Exam performed portable in patient room. Left Ventricle Mildly dilated left ventricle. Mild concentric left ventricular hypertrophy. The estimated ejection fraction is 45-50 %. Septal motion consistent with IVCD. No regional wall motion abnormalities noted. Right Ventricle Normal size and thickness. ICD or pacer leads identified within the right ventricle. Normal systolic function. Atria The left atrium is mildly enlarged. Normal right atrium. ICD or pacer leads identified within the right atrium. Normal atrial septum. Mitral Valve The mitral valve is structurally normal. No prolapse or stenosis seen. Tricuspid Valve Normal tricuspid valve. Unable to estimate RV systolic pressure due to insufficient tricuspid regurgitant envelope. Aortic Valve Trisinus/trileaflet aortic valve. Mild diffuse aortic valve thickening. Mild focal aortic valve thickening. There is no aortic stenosis. Mild (1+) aortic valve insufficiency. Pulmonic Valve Normal pulmonic valve. Great Vessels Normal aortic root. Normal arch. Normal inferior vena cava. Inferior vena cava collapse with sniff. Pericardium/Pleural No pericardial effusion. MMode/2D Measurements & Calculations LVIDd: 5.5 cm IVSd: 1.3 cm LA dimension: 4.6 cm LVIDs: 4.0 cm LVPWd: 1.3 cm FS: 27.7 % LAV(MOD-bp): 69.4 ml LA A4 area: 21.5 cm2 RA A4 area: 15.2 cm2 LAV(MOD-bp) Indexed: 32.4 ml/m2 LAV(MOD-sp2): 65.8 ml LAV(MOD-sp4): 60.5 ml Time Measurements MV dec time: 0.23 sec Doppler Measurements & Calculations MV E max marco: 78.1 cm/sec Lat Peak E' Marco: 3.6 cm/sec Med Peak E' Marco: 4.6 cm/sec MV A max marco: 107.1 cm/sec E/E' lat: 21.6 E/E' med: 17.1 MV E/A: 0.73 MV V2 max: 123.3 cm/sec MV P1/2t max marco: 75.1 cm/sec Ao V2 max: 177.7 cm/sec MV max P.1 mmHg MV P1/2t: 135.7 msec Ao max P.6 mmHg MV V2 mean: 61.0 cm/sec MV dec slope: 162.1 cm/sec2 Ao V2 mean: 113.6 cm/sec MV mean P.8 mmHg MVA(P1/2t): 1.6 cm2 Ao mean P.1 mmHg MV V2 VTI: 40.9 cm Ao V2 VTI: 35.5 cm AI max marco: 328.4 cm/sec LV V1 max: 114.9 cm/sec PA V2 max: 83.8 cm/sec AI max P.1 mmHg LV V1 max P.3 mmHg LV V1 mean P.7 mmHg AI dec slope: 137.7 cm/sec2 LV V1 mean: 75.5 cm/sec AI P1/2t: 698.4 msec LV V1 VTI: 26.5 cm Interpretation Summary Mildly dilated left ventricle. Mild concentric left ventricular hypertrophy. The estimated ejection fraction is 45-50 %. The left atrium is mildly enlarged. Unable to estimate RV systolic pressure due to insufficient tricuspid regurgitant envelope. There is no aortic stenosis. Mild (1+) aortic valve insufficiency. Compared to echo report dated 08/05/2016, no appreciable changes noted. Ordering Physician: Elizabeth Dobson Referring Physician: Danny Velasquez Performed By: Jamey Verma RCS
[2020-06-29 07:22] LABS: Magnesium 2.5 mg/dL (1.6-2.6); Thyroid Stim Hormone (TSH) 3.32 uIU/mL (0.358-3.74)
[2020-06-29 09:11] LABS: Hemoglobin A1c 7.2 % (3.8-5.6)
[2020-06-29] MEDS: Clopidogrel Bisulfate 75 MG Tablet PO (10:50)
[2020-06-29] MEDS: Celecoxib 200 MG Capsule PO (10:50)
[2020-06-29] MEDS: Enoxaparin 40 MG/0.4 ML Syringe SC (10:51)
[2020-06-29] MEDS: Dorzolamide 2% 10ml Bottle 1 DRP EACH EYE (10:52)
--- NOTE | 2020-06-29 14:06 | CASEMGMT ---
Patient politely refused completing PHQ 9 with SW. Sharmin NGUYEN TRENCH DIGGING MACHINE OPERATOR
--- NOTE | 2020-06-29 15:01 | DCINST_ITS ---
- Discharge Diagnoses Current Active Problems: Current Active and Chronic Problems (Last Reviewed 04/26/19 @ 09:[address] Elbert Marroquin, DO) Encephalopathy acute (Acute) Hyperglycemia (Acute) CKD (chronic kidney disease), stage III (Chronic) Generalized weakness (Acute) You will use the following diet at home:: Calorie/Carbohydrate Controlled (specify 1200, 1400, etc) - 1800 [place] Your food should be the consistency of: Regular Your liquids should be the consistency of: Regular/Thin Discharge Activity: Return to Normal Activity Weight Bearing Status: Full weight bearing Allergies/Adverse Reactions: Allergies lisinopril Allergy (Verified 06/29/20 02:53) Unknown Medications to take at Discharge Carvedilol [Coreg] 25 mg PO BID 03/31/17 Dorzolamide HCl [Trusopt] 1 drp OP DAILY 03/31/17 Aspirin E.C. [Ecotrin] 81 mg PO DAILY@0800 tab 04/22/17 clopidogrel 75 mg tablet 75 mg PO QDAY #90 tab 08/30/19 losartan 25 mg tablet 50 mg PO BID #360 tab 03/08/20 amlodipine 2.5 mg tablet 2.5 mg PO QDAY #90 tab 04/02/20 atorvastatin 20 mg tablet 20 mg PO QHS #90 tab 04/16/20 Furosemide 40 mg PO BID 06/29/20 Primary Care Physician: Danny Velasquez MD [Primary Care Provider] - Please follow up with your Primary Care Physician in: IN 2 WEEKS Test Results: Test results from this visit will be discussed in further detail at your follow- up appointment, if applicable.
--- NOTE | 2020-06-29 15:03 | CASEMGMT ---
Per therapy, pt did well with therapy and Dr. Hoang states pt has no confusion at this time. states no concerns with taking pt home at discharge. Dodie METCALF CM
--- NOTE | 2020-06-29 17:38 | DS.PCM_ITS ---
Discharge Date and Diagnosis Date of Admission: 06/29/20 Date of Discharge: 06/29/20 - Primary Discharge Diagnosis Acute Problems: #1 acute weakness-etiology unclear #2 stage III chronic kidney disease #3 nonischemic cardiomyopathy #4 cardiac arrhythmias #5 atherosclerotic heart disease - Secondary Discharge Diagnosis Chronic Problems: Chronic Problems (Last Reviewed 04/26/19 @ 09:[address] Elbert Marroquin, DO) CKD (chronic kidney disease), stage III (Chronic) Mixed hyperlipidemia (Chronic) Essential hypertension (Chronic) Nonischemic cardiomyopathy (Chronic) Presence of stent in coronary artery (Chronic 04/21/17) [facility] w/PTCA/JUSTYN to mid RCA 04/21/17 Atherosclerotic heart disease of [place] coronary artery without angina pectoris (Chronic) S/P PTCA/JUSTYN to RCA in April 2017; Hypokalemia (Chronic) Cardiomyopathy in other diseases classified elsewhere (Chronic) Abnormal stress test (Chronic) Frequent PVCs (Chronic) Dilated cardiomyopathy (Chronic) Biventricular cardiac pacemaker in situ (Chronic) BIV-Pacemaker Implant February 2004; [facility] 01/13/12, BiVPM generator change (Medtronic Syncra FORENSIC STRUCTURAL ENGINEER-P) Hospital Course and Treatment Operations: None Procedures: 2-D Echocardiogram Summary of Care Provided: The patient is a 80 year old M who was seen in the emergency room after being brought in from his home via squad for evaluation of altered mental status, chronic to the the patient stated that he had to use the restroom at home but was too weak to get out of bed and she had to provide assistance. Work-up in the emergency room included a CT of the brain which showed no evidence of acute pathology, patient's creatinine was slightly elevated in keeping with his history of chronic kidney disease, patient's urinalysis was unremarkable. Patient's troponin was below 0.015. Patient was placed in observation status on PCU, he was seen by PT and OT who did not feel the patient required inpatient or outpatient correction services. Patient had an echocardiogram performed which showed no change in his known ischemic cardiomyopathy-his ejection fraction was intermediate. On 06/29/2020, patient was seen and examined: On examination he appeared in good health and spirits. Vital signs as documented. Skin warm and dry and without overt rashes. Neck without JVD, neck was supple, trachea midline, thyroid was normal. Lungs clear bilaterally, normal air movement was noted. Heart exam notable for regular rhythm, normal sounds and absence of murmurs, rubs or gallops. Abdomen unremarkable and without evidence of organomegaly, masses, or abdominal aortic enlargement. Bowel sounds are present, abdomen is not distended. Extremities nonedematous, no cyanosis was noted, no clubbing was noted. Neuro: Cranial nerves II through XII are grossly intact, no focal motor deficits were noted, sensation to light touch and pinprick intact, motor exam 5/5 throughout. Psych: Patient is alert and oriented x3, he does not appear anxious or depressed, he does not appear agitated. Patient appears stable for discharge home, the exact etiology of the patient's acute weakness was unknown. I talked briefly with the patient's PCP Dr. Velasquez by phone today and I also talked with the patient's production quality analyst Dr. Easley. - Physical Exam Vitals/I&O's: Vital Signs Temp Pulse Resp BP Pulse Ox 98.5 F 60 18 133/59 H 97 06/29/20 15:03 06/29/20 15:03 06/29/20 15:03 06/29/20 15:03 06/29/20 15:03 Oxygen Delivery Method Room Air Weight: 87.1 kg Body Mass Index (BMI) 26.0 Intake and Output for Last 24 Hours 06/27/20 06/28/20 06/29/20 23:59 23:59 23:59 Intake Total 330 / 330 Balance 330 / 330 Laboratory Results 06/29/20 02:58: WBC 9.7, RBC 4.64, Hgb 13.6, Hct 41.5, MCV 89.4, MCH 29.3, MCHC 32.8, RDW Std Deviation 45.7 H, RDW Coeff of [place] 14.0, Plt Count 217, MPV 10.4, Immature Gran % (Auto) 0.300, Neut % (Auto) 56.6, Lymph % (Auto) 30.4, [place] % (Auto) 9.7, Eos % (Auto) 2.6, Baso % (Auto) 0.4, Absolute Neuts (auto) 5.5, Absolute Lymphs (auto) 2.96, Nucleated RBC % 0 06/29/20 02:58: PT 13.1, INR 1.0, APTT 25.9 06/29/20 02:58: Sodium 140, Potassium 3.4 L, Chloride 106, Carbon Dioxide 25.0, Anion Gap 9, BUN 23 H, Creatinine 1.80 H, Estim Creat Clear Calc 34.73, Est GFR (MDRD) Af Amer 47 L, Est GFR (MDRD) Non-Af 39 L, BUN/Creatinine Ratio 12.8, Glucose 184 H, Calcium 8.6, Total Bilirubin 0.50, AST 17, ALT 29, Alkaline Phosphatase 83, Troponin I < 0.015, Total Protein 7.5, Albumin 4.1, Globulin 3.4, Albumin/Globulin Ratio 1.2 06/29/20 03:55: Urine Color Straw, Urine Clarity Clear, Urine pH 7.0, Ur Specific [place] 1.010, Urine Protein Negative, Urine Glucose (UA) Normal, Urine Ketones Negative, Urine Occult Blood Negative, Urine Nitrite Negative, Urine Bilirubin Negative, Urine Urobilinogen Normal, Ur Leukocyte Esterase Negative, Urine RBC 0 SEEN, Urine WBC 0 SEEN, Ur Squamous Epith Cells 0 SEEN, Urine Bacteria 0 SEEN, Urine Mucus 0 SEEN 06/29/20 06:35: Magnesium 2.5, TSH 3.32, Free T4 1.20 06/29/20 06:35: Hemoglobin A1c 7.2 H 06/29/20 06:35: Ammonia 15.0 Discharge Activity: Return to Normal Activity Weight Bearing Status: Full weight bearing Home Medications: Medications to take at Discharge Carvedilol [Coreg] 25 mg PO BID 03/31/17 Dorzolamide HCl [Trusopt] 1 drp OP DAILY 03/31/17 Aspirin E.C. [Ecotrin] 81 mg PO DAILY@0800 tab 04/22/17 clopidogrel 75 mg tablet 75 mg PO QDAY #90 tab 08/30/19 losartan 25 mg tablet 50 mg PO BID #360 tab 03/08/20 amlodipine 2.5 mg tablet 2.5 mg PO QDAY #90 tab 04/02/20 atorvastatin 20 mg tablet 20 mg PO QHS #90 tab 04/16/20 Furosemide 40 mg PO BID 06/29/20 Primary Care Physician: Danny Velasquez MD [Primary Care Provider] - Please follow up with your Primary Care Physician in: IN 2 WEEKS Disposition: Home Minutes spent on discharge:: 30 Patient Condition:: Stable Medical Necessity - Tobacco Use Smoking Status: Light Smoker (<10/day) Tobacco Use: Non-smoker Meaningful Use Info Meaningful Use Diagnoses (Choose all that apply): None applicable OBSV E&M: 52113 Observ/hosp same date L3
== END 2020-06-29 15:03 | disposition home or self-care (01) ==
LOC: ED 03:39 → PCU 05:44
PROVIDERS: Admitting Provider Family Medicine; Emergency Provider Emergency Medicine; PCP Family Medicine; Visit Provider Internal Medicine
DX: R53.1 Weakness (principal); I25.10 Atherosclerotic heart disease of native coronary artery without angina pectoris; I12.9 Hypertensive chronic kidney disease with stage 1 through stage 4 chronic kidney disease, or unspecified chronic kidney disease; N18.3 Chronic kidney disease, stage 3 (moderate); E78.2 Mixed hyperlipidemia; G93.40 Encephalopathy, unspecified; R73.9 Hyperglycemia, unspecified; I42.0 Dilated cardiomyopathy; E87.6 Hypokalemia; M19.90 Unspecified osteoarthritis, unspecified site; Z79.899 Other long term (current) drug therapy; Z79.02 Long term (current) use of antithrombotics/antiplatelets; Z79.82 Long term (current) use of aspirin; Z95.5 Presence of coronary angioplasty implant and graft; Z95.0 Presence of cardiac pacemaker; F17.200 Nicotine dependence, unspecified, uncomplicated; I35.1 Nonrheumatic aortic (valve) insufficiency; I49.9 Cardiac arrhythmia, unspecified
CPT/HCPCS: 36415; 70450; 71045; 80053; 81001; 82140; 83036; 83735; 84439; 84443; 84484; 85025; 85610; 85730; 93005; 93306; 94762; 96360; 96372; 97161; 97166; 97802; 99218; 99251; 99285; J7030; A4216; G0378; G0463

== ENCOUNTER → 2020-07-03 08:48 | Outpatient (CLI) | payer MEDICARE, OTHER, SELFPAY ==
[2017-04-22 08:35] VITALS: BMI 26.3
[2020-06-29 06:30] VITALS: BMI 26.0
[2020-07-03 10:53] LABS: Anion Gap 5 (5-15); BUN 23 mg/dL (7-18); BUN/Creat Ratio 14.9 RATIO (10-20); Calcium,Total 8.5 mg/dL (8.5-10.1); Chloride 108 mmol/L (98-107); Creatinine, Serum 1.54 mg/dL (0.70-1.30); EST Glomerular Filtration Rate 46 mL/min (>60); Est Glom Filt Rate - Afr Amer 56 mL/min (>60); Glucose 148 mg/dL (74-106); Potassium 3.8 mmol/L (3.5-5.1); Sodium Level 140 mmol/L (136-145)
== END ==
PROVIDERS: PCP Family Medicine; Referring Provider Family Medicine; Visit Provider Family Medicine
DX: I10 Essential (primary) hypertension (principal)
CPT/HCPCS: 36415; 80048

== ENCOUNTER → 2020-10-01 10:38 | Outpatient (CLI) | payer MEDICARE, OTHER, SELFPAY ==
[2017-04-22 08:35] VITALS: BMI 26.3
[2020-06-29 06:30] VITALS: BMI 26.0
[2020-10-01 13:02] LABS: Anion Gap 6 (5-15); BUN 23 mg/dL (7-18); BUN/Creat Ratio 14.2 RATIO (10-20); Calcium,Total 8.8 mg/dL (8.5-10.1); Chloride 106 mmol/L (98-107); Cholesterol 104 mg/dL (200); Creatinine, Serum 1.62 mg/dL (0.70-1.30); EST Glomerular Filtration Rate 44 mL/min (>60); Est Glom Filt Rate - Afr Amer 53 mL/min (>60); Glucose 149 mg/dL (74-106); High Density Lipoprotein 48 mg/dL; Potassium 3.5 mmol/L (3.5-5.1); Sodium Level 140 mmol/L (136-145); Triglycerides 172 mg/dL; Very Low Density Lipoprotein 34 mg/dL (5-40)
== END ==
PROVIDERS: PCP Family Medicine; Visit Provider Family Medicine
DX: I10 Essential (primary) hypertension (principal)
CPT/HCPCS: 36415; 80048; 80061

== ENCOUNTER → 2021-04-01 10:44 | Outpatient (CLI) | payer MEDICARE, OTHER, SELFPAY ==
[2017-04-22 08:35] VITALS: BMI 26.3
[2021-01-17 10:18] VITALS: BMI 25.5
--- NOTE | 2021-04-01 10:49 | RAD_ITS ---
STUDY: X-RAY - RIGHT KNEE REASON FOR EXAM: Male, 81 years old. RIGHT KNEE PAIN TECHNIQUE: 4 view(s) of the knee. COMPARISON: None. FINDINGS: Normal visualized distal femur. Normal visualized proximal tibia and fibula. Normal proximal tibiofibular articulation. There is mild degenerative arthrosis of the medial femorotibial compartment. There is severe degenerative arthrosis of the lateral femorotibial compartment with severe joint space narrowing. There is moderate degenerative arthrosis of the patellofemoral articulation. The soft tissue structures are unremarkable. RAD/Knee 4 or More Views IMPRESSION: Degenerative arthrosis. Electronically Signed: Gary Davenport MD at 8:36 EDT , Service support ,
[2021-04-01 12:40] LABS: Anion Gap 5 (5-15); BUN 26 mg/dL (7-18); BUN/Creat Ratio 14.5 RATIO (10-20); Calcium,Total 9.1 mg/dL (8.5-10.1); Chloride 107 mmol/L (98-107); Cholesterol 132 mg/dL (200); Creatinine, Serum 1.79 mg/dL (0.70-1.30); EST Glomerular Filtration Rate 39 mL/min (>60); Est Glom Filt Rate - Afr Amer 47 mL/min (>60); Glucose 171 mg/dL (74-106); High Density Lipoprotein 45 mg/dL; Potassium 3.4 mmol/L (3.5-5.1); Sodium Level 140 mmol/L (136-145); Triglycerides 241 mg/dL; Very Low Density Lipoprotein 48 mg/dL (5-40)
== END ==
PROVIDERS: PCP Family Medicine; Referring Provider Family Medicine; Visit Provider Family Medicine
DX: M25.561 Pain in right knee (principal); E11.9 Type 2 diabetes mellitus without complications
CPT/HCPCS: 36415; 73564; 80048; 80061

== ENCOUNTER → 2021-09-30 10:14 | Outpatient (CLI) | payer MEDICARE, OTHER, SELFPAY ==
[2017-04-22 08:35] VITALS: BMI 26.3
[2021-09-30 12:22] LABS: Anion Gap 7 (5-15); BUN 20 mg/dL (7-18); Calcium,Total 8.8 mg/dL (8.5-10.1); Chloride 107 mmol/L (98-107); Cholesterol 112 mg/dL (200); Creatinine, Serum 1.66 mg/dL (0.70-1.30); EST Glomerular Filtration Rate 42 mL/min (>60); Est Glom Filt Rate - Afr Amer 51 mL/min (>60); Glucose 184 mg/dL (74-106); High Density Lipoprotein 40 mg/dL; Potassium 3.7 mmol/L (3.5-5.1); Sodium Level 140 mmol/L (136-145); Triglycerides 213 mg/dL; Very Low Density Lipoprotein 43 mg/dL (5-40)
== END ==
PROVIDERS: PCP Family Medicine; Referring Provider Family Medicine; Visit Provider Family Medicine
DX: E11.9 Type 2 diabetes mellitus without complications (principal)
CPT/HCPCS: 36415; 80048; 80061

== ENCOUNTER → 2022-05-12 | Outpatient (CLI) | payer MEDICARE, OTHER, SELFPAY ==
[2017-04-22 08:35] VITALS: BMI 26.3
[2022-05-12 18:33] LABS: Anion Gap 8 (5-15); BUN 26 mg/dL (7-18); BUN/Creat Ratio 14.9 RATIO (10-20); Calcium,Total 8.9 mg/dL (8.5-10.1); Chloride 103 mmol/L (98-107); Cholesterol 100 mg/dL (200); Creatinine, Serum 1.74 mg/dL (0.70-1.30); EST Glomerular Filtration Rate 40 mL/min (>60); Est Glom Filt Rate - Afr Amer 48 mL/min (>60); Glucose 121 mg/dL (74-106); High Density Lipoprotein 36 mg/dL; Potassium 3.5 mmol/L (3.5-5.1); Sodium Level 137 mmol/L (136-145); Triglycerides 167 mg/dL; Very Low Density Lipoprotein 33 mg/dL (5-40)
== END | disposition home or self-care (01) ==
LOC: MFPLAB 14:57
PROVIDERS: PCP Family Medicine; Visit Provider Family Medicine
DX: I10 Essential (primary) hypertension (principal)
CPT/HCPCS: 36415; 80048; 80061

== ENCOUNTER → 2022-08-01 | Outpatient (CLI) | payer MEDICARE, OTHER, SELFPAY ==
[2017-04-22 08:35] VITALS: BMI 26.3
[2022-08-01 12:16] LABS: Absolute Lymphocyte Count 1.66 X10^3/uL (0.83-4.51); Absolute Neutrophil Count 5.5 X10^3/uL (2.0-7.7); Basophil# 0.05 X10^3/uL; Basophil% 0.6 % (0-1); Eosinophil# 0.16 X10^3/uL; Hematocrit 37.4 % (40-54); Hemoglobin 12.1 g/dL (13.0-16.5); Lymphocyte # 1.66 X10^3/ul (0.83-4.51); Lymphocyte % 20.4 % (19-41); Mean Corp Hgb Conc 32.4 g/dL (32-36); Mean Corpuscular Hgb 29.5 pg (27.0-32.0); Mean Corpuscular Volume 91.2 fL (80-94); Mean Platelet Vol. 11.2 fl (6.2-12.0); Monocyte% 8.6 % (0-10); NRBC Flagged by Analyzer 0 % (0-5); Neutrophil # 5.54 X10^3/uL (2.7-7.7); Neutrophil % 68.3 % (47-70); Platelet Count 206 K/mm3 (150-450); RBC Distribution Width CV 14.1 % (11.6-14.6); RBC Distribution Width SD 47.6 fl (35.1-43.9); White Blood Count 8.1 K/mm3 (4.4-11.0)
[2022-08-01 13:00] LABS: Anion Gap 9 (5-15); BUN 24 mg/dL (7-18); Calcium,Total 9.3 mg/dL (8.5-10.1); Chloride 106 mmol/L (98-107); Creatinine, Serum 1.72 mg/dL (0.70-1.30); EST Glomerular Filtration Rate 40 mL/min (>60); Est Glom Filt Rate - Afr Amer 49 mL/min (>60); Glucose 193 mg/dL (74-106); Potassium 3.4 mmol/L (3.5-5.1); Sodium Level 142 mmol/L (136-145); Thyroid Stim Hormone (TSH) 1.74 uIU/mL (0.358-3.74)
== END | disposition home or self-care (01) ==
LOC: MTLAB 09:32
PROVIDERS: PCP Family Medicine; Referring Provider Family Medicine; Visit Provider Family Medicine
DX: R63.4 Abnormal weight loss (principal)
CPT/HCPCS: 36415; 80048; 84443; 85025

== ENCOUNTER → 2022-08-14 | Outpatient (CLI) | payer MEDICARE, OTHER, SELFPAY ==
[2017-04-22 08:35] VITALS: BMI 26.3
--- NOTE | 2022-08-14 12:26 | ECHOD_ITS ---
Reason For Study: MURMUR Procedure This was a 2D Doppler, Color Flow transthoracic echocardiogram. Exam performed in department. Left Ventricle Normal LV size. Left ventricular systolic function is normal. The estimated ejection fraction is 47 %. No regional wall motion abnormalities noted. Right Ventricle Normal RV size. Normal systolic function. Atria Normal left atrium. ICD or pacer leads identified within the right atrium. Normal right atrium. Mitral Valve Normal mitral valve. Mild (1+) mitral valve insufficiency. Tricuspid Valve Normal tricuspid valve. Aortic Valve Trisinus/trileaflet aortic valve. Mild focal aortic valve calcification. Mild (1+) aortic valve insufficiency. Great Vessels Normal aortic root. The pulmonary artery is normal size. Normal inferior vena cava. Pericardium/Pleural No pericardial effusion. MMode/2D Measurements & Calculations LVIDd: 4.8 cm IVSd: 1.3 cm Ao root diam: 3.4 cm LVIDs: 4.0 cm LVPWd: 1.1 cm FS: 16.6 % LAV(MOD-bp): 66.0 ml LVAd ap4: 41.4 cm2 SV(MOD-sp4): 72.2 ml LAV(MOD-bp) Indexed: 33.9 ml/m2 LVLd ap4: 9.2 cm LAV(MOD-sp2): 62.1 ml EDV(MOD-sp4): 156.0 ml LAV(MOD-sp4): 68.4 ml EDV(sp4-el): 157.5 ml LVAs ap4: 28.3 cm2 LVLs ap4: 7.9 cm ESV(MOD-sp4): 83.8 ml ESV(sp4-el): 86.0 ml EF(MOD-sp4): 46.3 % EF(sp4-el): 45.4 % SV(sp4-el): 71.5 ml LA dimension(2D): 5.0 cm LA A4 area: 23.1 cm2 RA A4 area: 14.7 cm2 Time Measurements MV dec time: 0.32 sec Doppler Measurements & Calculations MV E max baljit: 46.1 cm/sec MV V2 max: 106.2 cm/sec MV A max baljit: 101.4 cm/sec MV max P.5 mmHg MV dec slope: 147.7 cm/sec2 MV E/A: 0.45 MV V2 mean: 53.2 cm/sec MV mean P.4 mmHg MV V2 VTI: 35.4 cm Ao V2 max: 178.2 cm/sec AI max baljit: 392.6 cm/sec LV V1 max: 95.6 cm/sec Ao max P.7 mmHg AI max P.7 mmHg LV V1 max P.7 mmHg Ao V2 mean: 122.6 cm/sec LV V1 mean P.0 mmHg Ao mean P.1 mmHg AI dec slope: 219.3 cm/sec2 LV V1 mean: 64.9 cm/sec Ao V2 VTI: 40.0 cm AI P1/2t: 524.4 msec LV V1 VTI: 25.1 cm PA V2 max: 85.8 cm/sec PA V2 mean: 58.0 cm/sec ECHO/Echo Complete Interpretation Summary Normal LV size. Left ventricular systolic function is normal. No regional wall motion abnormalities noted. The estimated ejection fraction is 47 %. Compared to previous study, the left ventricular systolic function is the same. . Ordering Physician: Danny Velasquez Referring Physician: Danny Velasquez Performed By: Jessica Lincoln RCS
== END | disposition home or self-care (01) ==
LOC: CVS 12:25
PROVIDERS: PCP Family Medicine; Referring Provider Family Medicine; Visit Provider Family Medicine
DX: R01.1 Cardiac murmur, unspecified (principal)
CPT/HCPCS: 93306

== ENCOUNTER 2022-10-31 04:27 | Emergency (ER) | payer MEDICARE, OTHER, SELFPAY ==
[2017-04-22 08:35] VITALS: BMI 26.3
[2022-10-31 04:31] VITALS: BP 127/73; PULSE 84; RESP 15; TEMP 36.7; O2SAT 95; BMI 22.7
--- NOTE | 2022-10-31 04:58 | EKG12_ITS ---
Test Reason : Alt. LOC Blood Pressure : / mmHG Vent. Rate : 074 BPM Atrial Rate : 277 BPM P-R Int : 162 ms QRS Dur : 168 ms QT Int : 514 ms P-R-T Axes : 000 -50 204 degrees QTc Int : 570 ms AV dual-paced rhythm with premature ventricular or aberrantly conducted complexes Abnormal ECG Confirmed by JACKSON KEITA, DANIELITO ([id number]), online content editor KARTHIKEYAN JARVIS ([id number]) on 11/03/2022 12:59:43 PM Referred By: Morelia Confirmed By:DANIELITO PAZ MD
--- NOTE | 2022-10-31 04:58 | CT_ITS ---
STUDY: CT BRAIN WITHOUT CONTRAST REASON FOR EXAM: Male, 82 years old patient with altered mental status RADIATION DOSAGE (If Supplied By Facility): CTDIvol = ( 44.99 ) mGy, DLP = ( 829.85 ) mGycm TECHNIQUE: Transaxial CT imaging of the brain was performed without administration of intravenous contrast material. Multiplanar reformations are submitted for interpretation. Individualized dose optimization techniques were used for this CT. COMPARISON: No relevant priors. FINDINGS: The patient is a right-sided scleral buckle and bilateral ocular lenticular implants. Normal calvarium. There is mild cerebral atrophy with widening of the extra-axial spaces and ventricular dilatation. There are areas of decreased attenuation within the white matter tracts of the supratentorial brain, consistent with microvascular disease changes. There are scattered punctate calcifications visible possibly secondary to previous infection. These are unchanged since the previous CT. Normal basal ganglia and thalami. Normal brainstem. There is mild cerebellar atrophy. There is no intracranial hemorrhage. There are no findings of an acute ischemic infarction. Normal visualized paranasal sinuses. CT/Brain/Head without Contrast IMPRESSION: 1. Chronic involutional changes of the brain. 2. No CT evidence of acute intracranial hemorrhage. Electronically Signed: Katie Perez MD at 5:36 EST ,
[2022-10-31 05:12] LABS: Bacteria 0 SEEN /hpf (None Seen); Mucous, Urine 0 SEEN /hpf (<or=2+); Red Blood Cells-Urine 0 SEEN /hpf (0-5); Squamous Epithelial Cells - UA 0 SEEN /hpf (0-5); White Blood Cells 0 SEEN /hpf (0-5)
[2022-10-31 05:14] LABS: Color, Urine Yellow (Yellow); Glucose, Dipstick Normal (Normal); Ketone-Dipstick Negative (Negative); Leukocyte Esterase-Dipstick Negative /ul (Negative); Nitrite-Dipstick Negative (Negative); Occult Blood-Urine 25 /ul (Negative); Protein-Dipstick Negative (Negative); Urine Bilirubin Dipstick Negative (Negative); Urine Clarity Clear (Clear); Urine Urobilinogen Normal (Normal)
[2022-10-31 05:14] LABS: Absolute Lymphocyte Count 2.16 X10^3/uL (0.83-4.51); Absolute Neutrophil Count 5.3 X10^3/uL (2.0-7.7); Basophil# 0.05 X10^3/uL; Basophil% 0.6 % (0-1); Eosinophil# 0.24 X10^3/uL; Eosinophils% 2.7 % (0-5); Hematocrit 37.2 % (40-54); Lymphocyte # 2.16 X10^3/ul (0.83-4.51); Lymphocyte % 24.7 % (19-41); Mean Corp Hgb Conc 32.3 g/dL (32-36); Mean Corpuscular Hgb 28.8 pg (27.0-32.0); Mean Corpuscular Volume 89.2 fL (80-94); Monocyte# 0.95 X10^3/uL; Monocyte% 10.9 % (0-10); NRBC Flagged by Analyzer 0 % (0-5); Neutrophil # 5.33 X10^3/uL (2.7-7.7); Neutrophil % 60.9 % (47-70); Platelet Count 218 K/mm3 (150-450); RBC Distribution Width CV 14.2 % (11.6-14.6); RBC Distribution Width SD 46.3 fl (35.1-43.9); Red Blood Count 4.17 M/mm3 (4.6-6.2); White Blood Count 8.8 K/mm3 (4.4-11.0)
--- NOTE | 2022-10-31 05:15 | RAD_ITS ---
STUDY: X-RAY CHEST REASON FOR EXAM: Male, 82 years old patient with altered mental status. TECHNIQUE: Single AP portable view of the chest. COMPARISON: June 29, 2020. FINDINGS: Patient left-sided intracardiac pacemaker and defibrillator. Cardiac monitoring leads are present. The lungs are clear and hyperexpanded. There is no demonstrated pleural abnormality. Normal size heart. Normal mediastinum and chayo. Normal visualized pulmonary arteries. There is atherosclerotic calcification of the aortic arch with tortuosity. Normal visualized thoracic spine. Normal visualized ribs, clavicles, and shoulders. There is no demonstrated abnormality of the visualized soft tissue structures of the upper abdomen. RAD/Chest 1 View (Portable) IMPRESSION: No radiographic evidence of acute cardiopulmonary disease. Electronically Signed: Katie Perez MD at 5:49 EST ,
[2022-10-31 05:28] LABS: International Normalized Ratio 1.1; Prothrombin Time (Protime)PT. 14.3 SECONDS (11.7-14.9)
[2022-10-31 05:29] LABS: Partial Thromboplast Time 27.4 Seconds (24.1-36.2)
[2022-10-31 05:50] LABS: AST(SGOT) 10 U/L (15-37); Alanine Aminotransfer ALT/SGPT 25 U/L (16-61); Albumin, Serum 3.6 g/dL (3.2-5.0); Alkaline Phosphatase 73 U/L (45-117); Anion Gap 9 (5-15); BUN 36 mg/dL (7-18); BUN/Creat Ratio 21.3 RATIO (10-20); Bilirubin, Direct 0.14 mg/dL (0.00-0.30); Calcium,Total 8.9 mg/dL (8.5-10.1); Chloride 108 mmol/L (98-107); Creatinine, Serum 1.69 mg/dL (0.70-1.30); EST Glomerular Filtration Rate 41 mL/min (>60); Est Glom Filt Rate - Afr Amer 50 mL/min (>60); Estimated Creatinine Clearance 34.98 ml/min; Globulin 2.9 g/dL (2.2-4.2); Glucose 119 mg/dL (74-106); Magnesium 2.3 mg/dL (1.6-2.6); Potassium 3.1 mmol/L (3.5-5.1); Protein, Total 6.5 g/dL (6.4-8.2); Sodium Level 142 mmol/L (136-145); Thyroid Stim Hormone (TSH) 3.23 uIU/mL (0.358-3.74)
[2022-10-31 06:08] VITALS: BP 111/61; PULSE 72; RESP 18
--- NOTE | 2022-10-31 06:41 | CT_ITS ---
STUDY: CTA HEAD AND NECK WITH CONTRAST REASON FOR EXAM: Male, 82 years old patient with weakness and syncope. RADIATION DOSAGE (If Supplied By Facility): CTDIvol = ( 21.89 ) mGy, DLP = ( 754.73 ) mGycm TECHNIQUE: CT angiography was performed with a multi-detector CT scanner. Data acquisition was obtained from the skull base through the vertex following intravenous administration of 100 mL of IV Isovue-370. MIP images were reconstructed from the axial data set. Post-processing of the angiographic images was performed, with multiplanar reformation and 3D reconstruction. Individualized dose optimization techniques were used for this CT. COMPARISON: No relevant priors. FINDINGS: Normal bilateral petrous carotid arteries. There is ectatic elongation and tortuosity of the right cavernous carotid artery without a demonstrated hemodynamically significant stenosis. There is ectatic elongation and tortuosity of the left cavernous carotid artery without a demonstrated hemodynamically significant stenosis. Normal right A1 segments of the anterior cerebral artery. Normal left A1 segments of the anterior cerebral artery. There may be a small aneurysm arising from the right side of the anterior communicating artery measuring about 2.7 mm in greatest dimension. Normal bilateral A2 segments of the anterior cerebral arteries. Normal right M1 and M2 segments of the middle cerebral arteries, with a normal M1 bifurcation. Normal left M1 and M2 segments of the middle cerebral arteries, with a normal M1 bifurcation. There is non-visualization of the right posterior communicating artery (PCOM). There is non-visualization of the left posterior communicating artery (PCOM). Normal bilateral vertebral arteries. Normal basilar artery with a normal basilar bifurcation. The visualized bilateral superior cerebellar (SCA) arteries are normal. Normal bilateral P1, P2 and visualized P3 segments of the posterior cerebral arteries. There is no demonstrated abnormality of the visualized brain. AORTIC ARCH: There is atherosclerotic calcific plaque formation of the aortic arch and great vessels arising from the aortic arch, without a hemodynamically significant stenosis. There is a normal origin of the brachiocephalic, left common carotid, and left subclavian arteries. RIGHT CAROTID ARTERIES: Normal right common carotid artery (CCA). There is mild atherosclerotic plaque formation with minimal narrowing of the right carotid bulb. Normal origin of the right internal carotid (ICA) artery without a hemodynamically significant stenosis. Normal visualized cervical portion of the right internal carotid artery. Normal origin of the right external carotid artery (ECA). LEFT CAROTID ARTERIES: Normal left common carotid artery (CCA). There is moderate atherosclerotic plaque formation with moderate narrowing of the carotid bulb. Normal origin of the left internal carotid (ICA) artery without a hemodynamically significant stenosis. Normal visualized cervical portion of the left internal carotid artery. Normal origin of the left external carotid artery (ECA). VERTEBRAL ARTERIES: Normal bilateral vertebral arteries. NECK ANATOMY: Lung apices appear to be clear. The thyroid has a grossly normal appearance. Visualized parotid and submandibular glands have a grossly normal appearance. The nasopharynx, oropharynx, hypopharynx and larynx have a grossly normal appearance. There are moderately severe multilevel degenerative changes of the cervical spine. Patient is edentulous. Atlantoaxial and lateral occipital relationships are within normal limits. CT/CTA Head AND Neck W/ Contrast IMPRESSION: 1. No CTA evidence for hemodynamically significant stenosis, thrombosis, or dissection. 2. 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 3. Electronically Signed: Katie Perez MD at 7:46 EST ,
[2022-10-31 07:00] VITALS: BP 138/81; PULSE 59; RESP 16; O2SAT 98
--- NOTE | 2022-10-31 07:28 | EDS_ITS ---
HPI History of Present Illness Chief Complaint: Alt LOC Narrative Narrative: Patient is an 82-year-old male from home with history of hypertension hyperlipidemia and nonischemic cardiomyopathy with biventricular pacemaker in place. Patient states that he get up to use the bathroom this evening and then awoke to him standing in the bathroom door stating that he needed to help. She states she helped him into bed and then while he was laying there he appeared to become unresponsive for short time and secondary to this she called EMS. EMS states when they arrived patient had eyes closed and would awake to voice but seemed to answer questions inappropriately. Patient's only complaint upon arrival is headache [facility] Medical History (Updated 10/31/22 @ 08:[address] Jd Thibodeaux, DO) Atherosclerotic heart disease of [place] coronary artery without angina pectoris Biventricular cardiac pacemaker in situ Cardiomyopathy in other diseases classified elsewhere Dilated cardiomyopathy Essential hypertension Frequent PVCs Gout HTN (hypertension) Hyperlipemia Hypokalemia Mixed hyperlipidemia Nonischemic cardiomyopathy Premature ventricular contraction Home Medications aspirin 81 mg tablet,delayed release 81 mg PO DAILY@0800 04/22/17 [Rx Last Taken 06/28/20 09:00] metformin 500 mg tablet 500 mg PO DAILY 01/17/21 [History Last Taken Unknown] clopidogrel 75 mg tablet 75 mg PO QDAY #90 tabs 10/08/21 [Rx Last Taken Unknown] atorvastatin 20 mg tablet 20 mg PO QHS #90 tabs 04/15/22 [Rx Last Taken Unknown] losartan 50 mg tablet 50 mg PO BID #180 tabs 08/18/22 [Rx Last Taken Unknown] carvedilol 25 mg tablet 25 mg PO DAILY 09/23/22 [History Last Taken Unknown] amlodipine 5 mg tablet 5 mg PO DAILY this is a dose increase #90 tabs 10/02/22 [Rx Last Taken Unknown] donepezil 5 mg tablet 5 mg PO DAILY 10/31/22 [History Last Taken Unknown] furosemide 40 mg tablet 40 mg PO DAILY 10/31/22 [History Last Taken Unknown] Allergy/AdvReac Type Severity Reaction Status Date / Time lisinopril Allergy Unknown Verified 10/31/22 04:36 Family History Mother CVA (cerebral vascular accident) Brother Cancer Lung cancer Hypertension Brother Cancer Sister Cancer lung cancer Surgical History History of cardiac radiofrequency ablation (~05/18/16) Postsurgical percutaneous transluminal coronary angioplasty (PTCA) status Presence of stent in coronary artery (04/21/17) Social History Smoking Status: Never smoker how long ago did patient quit smokin alcohol intake: never substance use type: does not use caffeine: Yes Type: coffee what type of physical activity do you participate in: none seatbelt use: always do you feel safe at home: Yes ROS ROS ED Constitutional Constitutional ED: Denies chills or fever(s) Eyes Eyes: Denies change in vision ENT ENT ED: Denies sore throat Cardiovascular Cardiovascular: Denies chest pain Respiratory/Chest Respiratory/Chest: Denies cough or dyspnea Gastrointestinal Gastrointestinal: Denies abdominal pain, diarrhea, nausea or vomiting Genitourinary Genitourinary ED: Denies dysuria Musculoskeletal Musculoskeletal: Denies myalgias Integumentary Denies rash Neurologic Neurologic: Reports headache(s) Hematologic/Lymphatic Hematologic/Lymphatic: Denies easy bleeding or easy bruising EXAM Physical Exam Const Vital Signs: 10/31/22 04:31 10/31/22 06:08 10/31/22 07:00 Temperature 98.1 F Temperature Source Temporal Pulse Rate 84 72 59 L Respiratory Rate 15 18 16 Blood Pressure 127/73 H 111/61 138/81 H Blood Pressure Mean 91 77 100 Pulse Ox 95 98 Oxygen Delivery Method Room Air Room Air Positive well nourished and well developed General Appearance ED: well developed HEENT Reports dry mucous membranes Mouth ED: Yes dry mucous membranes Mouth: dry mucous membranes Eyes EOMs intact bilaterally Eyes Narrative: Patient has chronic changes to his right pupil but otherwise extraocular muscles are intact and left pupil is equal and reactive to light Neck supple Neck Narrative: No nuchal rigidity or meningeal signs present Chest Wall palpation of chest normal Resp normal respiratory effort and clear to auscultation bilaterally Resp Narrative: Breath sounds are diminished throughout but overall clear to auscultation with no signs of distress Cardio regular rate and regular rhythm Rate: other Other Details: There is an occasional ectopic beat noted and radial pulses are plus 2 out of 4 bilaterally GI normal to inspection, nondistended, normoactive bowel sounds, non-tender, non- distended and no masses GI Narrative: No voluntary guarding or rigidity no pulsatile mass Auscultation: normoactive bowel sounds Palpation: soft Extremity normal to inspection Neuro CN's II-XII intact bilaterally Neuro Narrative: Patient is awake and alert to person and place but disoriented to time. There is no obvious focal weakness to either arm or leg. Cranial nerves II through XII are grossly intact. Patient would receive an NIH stroke scale score of 2 for his confusion and mild ataxia Sensorium / Orientation: alert Psych Psych Narrative: Patient has a flat affect Skin no rashes or lesions noted MDM MDM MDM Narrative Medical decision making narrative: Patient presented to the ER afebrile with stable vitals. He knew his name and his birthdate his 's name where he was at but was off on the year. There was no obvious focal neurologic deficit by exam he did have mild truncal ataxia and with the confusion scored 1 point for each of the confusion and ataxia so he was given a stroke scale score of 2. Work-up showed no brain bleed and CTA showed a possible aneurysm without dissection or severe stenosis. He also had negative viral swabs and urine sample showed no sign of infection. After being in the ER for a few hours he seemed to have improvement of his mental status spontaneously and resolution of his mild truncal ataxia. He was able to ambulate on his own without significant sway or unsteadiness. Therefore at this time as we have confirmed that his pacemaker is functioning appropriately there is no significant bleed or stenosis and no overt signs of infection or electrolyte derangement or acute on chronic kidney disease and is also been able to ambulate at his baseline I do not believe that admission would benefit him at this time. Patient states he also wishes to return home and will follow-up with his family doctor on outpatient basis. Therefore patient will be advised to continue his medication and follow-up with his family doctor for repeat evaluation. He and are agreeable to this plan and therefore will be discharged at this time. Lab Data Attestation: I reviewed the patient's lab results. Labs: Laboratory Results - last 24 hr 10/31/22 10/31/22 10/31/22 04:18 04:18 04:18 WBC 8.8 RBC 4.17 L Hgb 12.0 L Hct 37.2 L MCV 89.2 MCH 28.8 MCHC 32.3 RDW Std Deviation 46.3 H RDW Coeff of Esthela 14.2 Plt Count 218 MPV 11.0 Immature Gran % (Auto) 0.200 Neut % (Auto) 60.9 Lymph % (Auto) 24.7 [place] % (Auto) 10.9 H Eos % (Auto) 2.7 Baso % (Auto) 0.6 Absolute Neuts (auto) 5.3 Absolute Lymphs (auto) 2.16 Nucleated RBC % 0 PT 14.3 INR 1.1 APTT 27.4 Sodium 142 Potassium 3.1 L Chloride 108 H Carbon Dioxide 25.0 Anion Gap 9 BUN 36 H Creatinine 1.69 H Estim Creat Clear Calc 34.98 Est GFR (MDRD) Af Amer 50 L Est GFR (MDRD) Non-Af 41 L BUN/Creatinine Ratio 21.3 H Glucose 119 H Calcium 8.9 Magnesium 2.3 Total Bilirubin 0.40 Direct Bilirubin 0.14 AST 10 L ALT 25 Alkaline Phosphatase 73 Ammonia Total Protein 6.5 Albumin 3.6 Globulin 2.9 TSH 3.23 Urine Color Urine Clarity Urine pH Ur Specific Roulette Urine Protein Urine Glucose (UA) Urine Ketones Urine Occult Blood Urine Nitrite Urine Bilirubin Urine Urobilinogen Ur Leukocyte Esterase Urine RBC Urine WBC Ur Squamous Epith Cells Urine Bacteria Urine Mucus 10/31/22 10/31/22 04:18 04:50 WBC RBC Hgb Hct MCV MCH MCHC RDW Std Deviation RDW Coeff of Esthela Plt Count MPV Immature Gran % (Auto) Neut % (Auto) Lymph % (Auto) [place] % (Auto) Eos % (Auto) Baso % (Auto) Absolute Neuts (auto) Absolute Lymphs (auto) Nucleated RBC % PT INR APTT Sodium Potassium Chloride Carbon Dioxide Anion Gap BUN Creatinine Estim Creat Clear Calc Est GFR (MDRD) Af Amer Est GFR (MDRD) Non-Af BUN/Creatinine Ratio Glucose Calcium Magnesium Total Bilirubin Direct Bilirubin AST ALT Alkaline Phosphatase Ammonia 14.0 Total Protein Albumin Globulin TSH Urine Color Yellow Urine Clarity Clear Urine pH 7.0 Ur Specific Roulette 1.010 Urine Protein Negative Urine Glucose (UA) Normal Urine Ketones Negative Urine Occult Blood 25 H Urine Nitrite Negative Urine Bilirubin Negative Urine Urobilinogen Normal Ur Leukocyte Esterase Negative Urine RBC 0 SEEN Urine WBC 0 SEEN Ur Squamous Epith Cells 0 SEEN Urine Bacteria 0 SEEN Urine Mucus 0 SEEN Radiography Diagnostic Testing: Clinical Impression(s) from Imaging Studies Brain CT 10/31/22 04:58 IMPRESSION: 1. Chronic involutional changes of the brain. 2. No CT evidence of acute intracranial hemorrhage. Electronically Signed: Katie Perez MD at 5:36 EST , Chest X-Ray 10/31/22 05:15 IMPRESSION: No radiographic evidence of acute cardiopulmonary disease. Electronically Signed: Katie Perez MD at 5:49 EST , Head/Neck CTA 10/31/22 06:41 IMPRESSION: 1. No CTA evidence for hemodynamically significant stenosis, thrombosis, or dissection. 2. 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 3. Electronically Signed: Katie Perez MD at 7:46 EST , Chest x-ray as interpreted by the emergency medicine physician reveals no acute infiltrate pneumothorax or pleural effusion Discharge Plan Triage Chief Complaint: Alt LOC ED Provider: Jd Thibodeaux Dx/Rx/DC Orders Clinical Impression: Mental status change resolved, Essential hypertension, CKD (chronic kidney disease), stage III, Cephalgia Instructions: ED Confusion Prescriptions: No Action metformin 500 mg tablet 500 mg PO DAILY carvedilol 25 mg tablet 25 mg PO DAILY Rx Instructions: must administer with a meal/food aspirin 81 MG tablet 81 mg PO DAILY@0800 0RF donepezil 5 mg Tablet 5 mg PO DAILY furosemide 40 mg tablet 40 mg PO DAILY clopidogrel 75 mg tablet 75 mg PO QDAY Qty: 90 3RF atorvastatin 20 mg tablet 20 mg PO QHS Qty: 90 3RF losartan 50 mg tablet 50 mg PO BID Qty: 180 3RF amlodipine 5 mg tablet 5 mg PO DAILY Qty: 90 3RF Primary Care Provider: Danny Velasquez Referrals: Danny Velasquez MD [Primary Care Provider] - Activity Restrictions/Additional Instructions: Please return to the ER should you have any further concerns and continue all your medication as previously directed Disposition Disposition: Home, Self Care
[2022-10-31 08:00] VITALS: BP 117/63; PULSE 77; RESP 17; O2SAT 99
[2022-10-31] MEDS: Aspirin 325 MG Tablet PO (08:27)
[2022-10-31 08:37] VITALS: BP 120/58; PULSE 72; RESP 16; TEMP 36.5; O2SAT 99
== END 2022-10-31 08:39 | disposition home or self-care (01) ==
PROVIDERS: Emergency Provider Emergency Medicine; PCP Family Medicine; Visit Provider Emergency Medicine
DX: R41.82 Altered mental status, unspecified (principal); I42.0 Dilated cardiomyopathy; N18.30 Chronic kidney disease, stage 3 unspecified; R27.0 Ataxia, unspecified; I25.10 Atherosclerotic heart disease of native coronary artery without angina pectoris; I12.9 Hypertensive chronic kidney disease with stage 1 through stage 4 chronic kidney disease, or unspecified chronic kidney disease; R51.9 Headache, unspecified; E78.2 Mixed hyperlipidemia; Z79.82 Long term (current) use of aspirin; Z79.02 Long term (current) use of antithrombotics/antiplatelets; Z79.899 Other long term (current) drug therapy; Z95.0 Presence of cardiac pacemaker; Z95.5 Presence of coronary angioplasty implant and graft
CPT/HCPCS: 70450; 70496; 70498; 71045; 80048; 80076; 81001; 82140; 83735; 84443; 85025; 85610; 85730; 87428; 93005; 96360; 99285; J7040; Q9967; A4216

== ENCOUNTER → 2022-11-20 | Outpatient (CLI) | payer MEDICARE, OTHER, SELFPAY ==
[2017-04-22 08:35] VITALS: BMI 26.3
[2022-11-20 16:34] LABS: Anion Gap 8 (5-15); BUN 31 mg/dL (7-18); BUN/Creat Ratio 16.9 RATIO (10-20); Calcium,Total 8.8 mg/dL (8.5-10.1); Chloride 105 mmol/L (98-107); Cholesterol 125 mg/dL (200); Creatinine, Serum 1.83 mg/dL (0.70-1.30); EST Glomerular Filtration Rate 38 mL/min (>60); Est Glom Filt Rate - Afr Amer 46 mL/min (>60); Glucose 111 mg/dL (74-106); High Density Lipoprotein 57 mg/dL; Potassium 3.6 mmol/L (3.5-5.1); Sodium Level 141 mmol/L (136-145); Triglycerides 158 mg/dL; Very Low Density Lipoprotein 32 mg/dL (5-40)
== END | disposition home or self-care (01) ==
LOC: MFPLAB 11:39
PROVIDERS: PCP Family Medicine; Visit Provider Family Medicine
DX: E11.9 Type 2 diabetes mellitus without complications (principal)
CPT/HCPCS: 36415; 80048; 80061

== ENCOUNTER → 2022-12-04 | Outpatient (CLI) | payer MEDICARE, OTHER, SELFPAY ==
[2017-04-22 08:35] VITALS: BMI 26.3
[2022-12-04 12:15] LABS: Absolute Lymphocyte Count 1.92 X10^3/uL (0.83-4.51); Absolute Neutrophil Count 7.1 X10^3/uL (2.0-7.7); Basophil# 0.05 X10^3/uL; Basophil% 0.5 % (0-1); Eosinophil# 0.08 X10^3/uL; Eosinophils% 0.8 % (0-5); Hematocrit 34.7 % (40-54); Hemoglobin 11.2 g/dL (13.0-16.5); Lymphocyte # 1.92 X10^3/ul (0.83-4.51); Mean Corp Hgb Conc 32.3 g/dL (32-36); Mean Corpuscular Hgb 29.1 pg (27.0-32.0); Mean Corpuscular Volume 90.1 fL (80-94); Mean Platelet Vol. 10.8 fl (6.2-12.0); Monocyte# 0.93 X10^3/uL; Monocyte% 9.2 % (0-10); NRBC Flagged by Analyzer 0 % (0-5); Neutrophil # 7.11 X10^3/uL (2.7-7.7); Neutrophil % 70.1 % (47-70); Platelet Count 213 K/mm3 (150-450); RBC Distribution Width CV 14.3 % (11.6-14.6); RBC Distribution Width SD 46.8 fl (35.1-43.9); Red Blood Count 3.85 M/mm3 (4.6-6.2); White Blood Count 10.1 K/mm3 (4.4-11.0)
[2022-12-04 12:50] LABS: Anion Gap 10 (5-15); BUN 33 mg/dL (7-18); BUN/Creat Ratio 17.6 RATIO (10-20); Calcium,Total 8.7 mg/dL (8.5-10.1); Chloride 104 mmol/L (98-107); Creatinine, Serum 1.88 mg/dL (0.70-1.30); EST Glomerular Filtration Rate 37 mL/min (>60); Est Glom Filt Rate - Afr Amer 44 mL/min (>60); Glucose 151 mg/dL (74-106); Potassium 3.5 mmol/L (3.5-5.1); Sodium Level 138 mmol/L (136-145)
== END | disposition home or self-care (01) ==
LOC: MFPLAB 10:49
PROVIDERS: PCP Family Medicine; Visit Provider Family Medicine
DX: R42 Dizziness and giddiness (principal)
CPT/HCPCS: 36415; 80048; 85025

== ENCOUNTER → 2023-01-30 | Outpatient (CLI) | payer MEDICARE, OTHER, SELFPAY ==
[2017-04-22 08:35] VITALS: BMI 26.3
[2023-01-30 12:22] LABS: Absolute Lymphocyte Count 1.85 X10^3/uL (0.83-4.51); Basophil# 0.05 X10^3/uL; Basophil% 0.6 % (0-1); Eosinophil# 0.09 X10^3/uL; Hematocrit 33.3 % (40-54); Hemoglobin 10.7 g/dL (13.0-16.5); Lymphocyte # 1.85 X10^3/ul (0.83-4.51); Mean Corp Hgb Conc 32.1 g/dL (32-36); Mean Corpuscular Hgb 29.7 pg (27.0-32.0); Mean Corpuscular Volume 92.5 fL (80-94); Mean Platelet Vol. 10.8 fl (6.2-12.0); Monocyte# 0.84 X10^3/uL; Monocyte% 9.5 % (0-10); NRBC Flagged by Analyzer 0 % (0-5); Neutrophil # 5.97 X10^3/uL (2.7-7.7); Neutrophil % 67.6 % (47-70); Platelet Count 215 K/mm3 (150-450); RBC Distribution Width SD 47.8 fl (35.1-43.9); White Blood Count 8.8 K/mm3 (4.4-11.0)
[2023-01-30 12:51] LABS: ALB/GLOB Ratio 1.5 RATIO (0.9-2.4); AST(SGOT) 10 U/L (15-37); Alanine Aminotransfer ALT/SGPT 22 U/L (16-61); Albumin, Serum 3.5 g/dL (3.2-5.0); Alkaline Phosphatase 70 U/L (45-117); Anion Gap 5 (5-15); BUN 24 mg/dL (7-18); BUN/Creat Ratio 14.6 RATIO (10-20); Calcium,Total 8.7 mg/dL (8.5-10.1); Chloride 107 mmol/L (98-107); Creatinine, Serum 1.64 mg/dL (0.70-1.30); EST Glomerular Filtration Rate 43 mL/min (>60); Est Glom Filt Rate - Afr Amer 52 mL/min (>60); Globulin 2.4 g/dL (2.2-4.2); Glucose 165 mg/dL (74-106); Potassium 3.5 mmol/L (3.5-5.1); Protein, Total 5.9 g/dL (6.4-8.2); Sodium Level 139 mmol/L (136-145)
== END | disposition home or self-care (01) ==
LOC: MFPLAB 11:06
PROVIDERS: PCP Family Medicine; Visit Provider Nurse Practitioner Family
DX: I10 Essential (primary) hypertension (principal); E11.9 Type 2 diabetes mellitus without complications
CPT/HCPCS: 36415; 80053; 85025

== ENCOUNTER 2023-04-03 13:00 | Outpatient (RCR) | payer MEDICARE, OTHER, SELFPAY ==
[2017-04-22 08:35] VITALS: BMI 26.3
--- NOTE | 2023-02-26 11:31 | HP.PTEVAL ---
Patient's Visit Information DERRICK GALLEGOS is a 82 year old M referred to Physical Therapy by GINI Talavera with a diagnosis of debilitation. Date of Evaluation: 02/25/23 Physical Therapist: Kenyon Abreu, PT, ATC - Visit Plan Frequency: 2-3x /Week Duration: 4-6 Weeks Plan: B LE strengthening, balance and proprio, core strengthening, gait training, stair negotiation, and HEP - Subjective Pt reports he almost had a stroke in the first of December, but made it to the hospital in time and they were able to reverse the effects. Pt reports he has noticed generalized weakness in LE's since this event. Pt reports he feels like he is getting stronger overall, but notes he is limited with yard work at this time. Pt reports he has stairs at home and is able to negotiate them one step at a time. Pt reports he has difficulty seeing out of his R knee which has resulted in him experiencing a couple falls in the past. Pt reports he has good feeling in his feet. Pt notes he has some residual weakness at this time secondary to a Hx of gout. 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 [place] - Objective Neuro: B LE sensation is WNL to light touch. B patellar reflex= 2/3. ROM: B LE's are WFL when compared bilaterally. MMT: B LE's are grossly 4/5 throughout. Gait: Pt is able to ambulate 340 feet with CGAx1 de. FGA: 10/03 - Balance/Special Test Scores Functional Gait Assessment Score: 11 % Disability: 63.3400 Lower Extremity Functional Score: 32 - Goals Goal 1:: Increase FGA x 5 points to aid with preventing future falls Goal Time Frame: 4-6 Weeks Goal 2:: Increase B LE strength x 1 grade to aid with stair negotiation Goal Time Frame: 4-6 Weeks Goal 3:: Pt will be able to ambulate 1000 feet to aid with community ambulation Goal Time Frame: 4-6 Weeks Goal 4:: I with HEP Goal Time Frame: 4-6 Weeks - Rehabilitation Potential Physical Therapy Diagnosis: Pt has B LE weakness, unsteady gait, and Hx of falls secondary to debilitation Rehabilitation Potential: Good - Anticipated Interventions Patient/Client Instruction: Educate patient on: Condition, Plan of Care For the Purpose of:: To improve self management Therapeutic Exercise to Include: Strength training, Endurance training, Balance training, Gait and locomotor training, Dynamic Lumbar Stabilization For the Purpose of:: To improve muscle performance and motor function, To improve ability to perform ADL's, To increase tolerance to activity/condition/position, To improve ability of physical actions for home/community/work/leisure Thank you for the opportunity to evaluate your patient. For Medicare and Medicare HMO plans, please review the plan of care and approve it. It will need to be FAXED BACK to us at [phone] for Medicare purposes. For Medicare only, by signing this I certify the plan of care. Please let me know if there are questions or concerns regarding this plan of care. Physician Signature: Date:
--- NOTE | 2023-04-03 14:15 | HP.PTDCSUM_ITS ---
It has been my pleasure to treat DERRICK GALLEGOS referred by GINI Talavera, with the diagnosis of debilitation for a total of 8 visit(s). Discharge Date: Please see the following information for a summary of their discharge status. Subjective: I am ready to be done with PT % Improvement: 50 Objective/Function: B LE strength is 4+/5 throughout. Pt is able to ambulate 680 feet until needing to rest. FGA /. Pt showed excellent progress today Goal 1:: Increase FGA x 5 points to aid with preventing future falls Goal Progress: Goal Met Goal 2:: Increase B LE strength x 1 grade to aid with stair negotiation Goal Progress: Goal Met Goal 3:: Pt will be able to ambulate 1000 feet to aid with community ambulation Goal Progress: Progressing Goal 4:: I with HEP Goal Progress: Goal Met Plan: Discharge to [facility] If there are questions or concerns regarding this patient's physical therapy, please feel free to call me at [phone]. Thank you for the referral of this patient. Sincerely, Kenyon Abreu, PT, ATC Balance/Gait/Functional tests - Balance/Special Test Scores Functional Gait Assessment Score: 19 % Disability: 36.6700 Lower Extremity Functional Score: 43
== END 2023-04-03 19:00 | disposition home or self-care (01) ==
LOC: PT 13:00
PROVIDERS: PCP Family Medicine; Referring Provider Nurse Practitioner Family; Visit Provider Nurse Practitioner Family
DX: R53.1 Weakness (principal)
CPT/HCPCS: 97110; 97161; 97164

== ENCOUNTER → 2023-06-08 | Outpatient (CLI) | payer MEDICARE, OTHER, SELFPAY ==
[2017-04-22 08:35] VITALS: BMI 26.3
--- NOTE | 2023-06-08 14:34 | RAD_ITS ---
INDICATION: PAIN EXAMINATION/TECHNIQUE: X-RAY - BILATERAL XR Hips Bilateral with Pelvis when performed; 2 Views COMPARISON: None. FINDINGS: Single frontal view of the pelvis. 2 views of the right hip. 2 views of the left hip. BONES: Normal anatomic alignment without evidence of fracture or subluxation. No concerning bony lesion or abnormal sclerosis to suggest lesion. JOINTS: No significant degenerative change. SOFT TISSUES: Unremarkable. RAD/Hips B/L min 2 views w/ Pelvis IMPRESSION: No acute osseous abnormality of the pelvis or bilateral hips. Electronically Signed: Quang Frazier MD at 6:07 EDT ,
[2023-06-08 17:52] LABS: Hematocrit 37.2 % (40-54); Hemoglobin 11.6 g/dL (13.0-16.5); Mean Corp Hgb Conc 31.2 g/dL (32-36); Mean Corpuscular Hgb 28.9 pg (27.0-32.0); Mean Corpuscular Volume 92.8 fL (80-94); Mean Platelet Vol. 10.7 fl (6.2-12.0); Platelet Count 209 K/mm3 (150-450); RBC Distribution Width CV 13.7 % (11.6-14.6); Red Blood Count 4.01 M/mm3 (4.6-6.2); White Blood Count 7.5 K/mm3 (4.4-11.0)
[2023-06-08 18:25] LABS: Anion Gap 6 (5-15); BUN 29 mg/dL (7-18); BUN/Creat Ratio 16.5 RATIO (10-20); Calcium,Total 8.8 mg/dL (8.5-10.1); Chloride 108 mmol/L (98-107); Creatinine, Serum 1.76 mg/dL (0.70-1.30); EST Glomerular Filtration Rate 39 mL/min (>60); Est Glom Filt Rate - Afr Amer 48 mL/min (>60); Glucose 139 mg/dL (74-106); Potassium 3.4 mmol/L (3.5-5.1); Sodium Level 140 mmol/L (136-145); Thyroid Stim Hormone (TSH) 1.53 uIU/mL (0.358-3.74)
== END | disposition home or self-care (01) ==
PROVIDERS: PCP Family Medicine; Referring Provider Family Medicine; Visit Provider Family Medicine
DX: R53.83 Other fatigue (principal); M25.559 Pain in unspecified hip
CPT/HCPCS: 36415; 73521; 80048; 84443; 85027

== ENCOUNTER → 2023-07-08 | Outpatient (CLI) | payer MEDICARE, OTHER, SELFPAY ==
[2017-04-22 08:35] VITALS: BMI 26.3
[2023-07-08 15:37] LABS: Anion Gap 6 (5-15); BUN 25 mg/dL (7-18); BUN/Creat Ratio 14.4 RATIO (10-20); Calcium,Total 8.7 mg/dL (8.5-10.1); Chloride 109 mmol/L (98-107); Cholesterol 109 mg/dL (200); Creatinine, Serum 1.74 mg/dL (0.70-1.30); EST Glomerular Filtration Rate 40 mL/min (>60); Est Glom Filt Rate - Afr Amer 48 mL/min (>60); Glucose 134 mg/dL (74-106); High Density Lipoprotein 60 mg/dL; Potassium 4.1 mmol/L (3.5-5.1); Sodium Level 141 mmol/L (136-145); Triglycerides 103 mg/dL; Very Low Density Lipoprotein 21 mg/dL (5-40)
== END | disposition home or self-care (01) ==
LOC: MFPLAB 14:21
PROVIDERS: PCP Family Medicine; Visit Provider Family Medicine
DX: I10 Essential (primary) hypertension (principal); N28.9 Disorder of kidney and ureter, unspecified
CPT/HCPCS: 36415; 80048; 80061

== ENCOUNTER 2023-07-21 10:30 | Outpatient (RCR) | payer MEDICARE, OTHER, SELFPAY ==
[2017-04-22 08:35] VITALS: BMI 26.3
--- NOTE | 2023-06-23 16:55 | HP.PTEVAL_ITS ---
Patient's Visit Information Visit Information Visit Information: DERRICK GALLEGOS is a 83 year old M referred to Physical Therapy by Dr. Danny Velasquez MD with a diagnosis of B hip pain. Date of Evaluation: 06/23/23 Physical Therapist: Kenyon Abreu, PT, ATC Visit Plan Frequency: 2-3x /Week Duration: 4-6 Weeks Plan: SKTC/DKTC, core stab ex's in neutral spine, B LE strengthening, nustep, and HEP Subjective Subjective: Pt reports he has had pain on the posterior aspect of Bilat hips for a couple weeks now. Pt notes he thought the pain would just go away, but hasn't yet. Pt reports his pain had an insidious onset in nature. Pt does report that he had a stroke in Dec of this year and was told at the time that he needed to slow down and get some more rest. Pt reports he believes this may have caused him to stiffen up and he believes this may have been the cause of his LBP. Pt reports he has had some recent x-rays which revealed hip OA. Pt has not had any surgery to his hips or knees. Pt reports he has stairs in the garage that he has to negotiate one stair at a time. No sleep difficulty secondary to pain. Pt reports no specific activity causes his pain, but notes it comes and goes at all times. 2/10 pain at rest, 7/10 pain at worst Pain B hips: Pain Intensity (Out of 10): 2 Pain Intensity Range: 7 Objective Objective: Neuro: B LE sensation is WNL to light touch. B patellar reflex= 1/3 ROM: B LE's are WNL when compared bilaterally MMT: B LE's are grossly 4/5 throughout Special tests: all negative tests for hip OA today Repeated movements: SKTC/DKTC decreased B hip pain this date Balance/Special Test Scores Lower Extremity Functional Score: 24 Goals Goal 1:: Decrease B hip and LBP x 50 % to aid with ambulation Goal Time Frame: 4-6 Weeks Goal 2:: Increase B LE strength x 1 grade to aid with stair negotiation Goal Time Frame: 4-6 Weeks Goal 3:: I with HEP Goal Time Frame: 4-6 Weeks Rehabilitation Potential Physical Therapy Diagnosis: Pt has B LE weakness, B hip pain, and difficulty with stair negotiation secondary to deg changes in L/S Rehabilitation Potential: Good Anticipated Interventions Patient/Client Instruction: Educate patient on: Condition and Plan of Care For the Purpose of:: To improve self management Therapeutic Exercise to Include: Strength training, Endurance training, Postural training and Dynamic Lumbar Stabilization For the Purpose of:: To decrease pain, To improve muscle performance and motor function and To increase tolerance to activity/condition/position Text: Thank you for the opportunity to evaluate your patient. For Medicare and Medicare HMO plans, please review the plan of care and approve it. It will need to be FAXED BACK to us at [phone] for Medicare purposes. For Medicare only, by signing this I certify the plan of care. Please let me know if there are questions or concerns regarding this plan of care. Physician Signature: Date:
--- NOTE | 2023-07-21 11:06 | HP.PTDCSUM ---
Discharge Summary D/C summary: It has been my pleasure to treat DERRICK GALLEGOS referred by Dr. Danny Velasquez MD, with the diagnosis of B hip pain for a total of 7 visit(s). Discharge Date: Please see the following information for a summary of their discharge status. Subjective Subjective: I havent had pain for a week Pain B hips: Pain Intensity (Out of 10): 0 Overall Improvement % Improvement: 100 Objective Objective/Function: 0/10 pain today Pt is I with HEP B LE MMT 5/5 throughout Rx goals achieved Goals Goal 1:: Decrease B hip and LBP x 50 % to aid with ambulation Goal Progress: Goal Met Goal 2:: Increase B LE strength x 1 grade to aid with stair negotiation Goal Progress: Goal Met Goal 3:: I with HEP Goal Progress: Goal Met Plan Plan: Discharge to HEP D/C Information d/c sentence: If there are questions or concerns regarding this patient's physical therapy, please feel free to call me at [phone]. Thank you for the referral of this patient. Sincerely, Kenyon Abreu, PT, ATC Balance/Gait/Functional tests Balance/Special Test Scores Oswestry Low Back Score: 8 Lower Extremity Functional Score: 24 Improvement % Improvement: 100
== END 2023-07-21 12:23 | disposition home or self-care (01) ==
LOC: PT 10:30
PROVIDERS: PCP Family Medicine; Referring Provider Family Medicine; Visit Provider Family Medicine
DX: M25.551 Pain in right hip (principal); M25.552 Pain in left hip
CPT/HCPCS: 97110; 97161; 97530

== ENCOUNTER → 2023-10-05 | Outpatient (CLI) | payer MEDICARE, OTHER, SELFPAY ==
[2017-04-22 08:35] VITALS: BMI 26.3
[2023-10-05 10:32] LABS: Hematocrit 35.2 % (40-54); Hemoglobin 11.1 g/dL (13.0-16.5); Mean Corp Hgb Conc 31.5 g/dL (32-36); Mean Corpuscular Hgb 29.1 pg (27.0-32.0); Mean Corpuscular Volume 92.1 fL (80-94); Mean Platelet Vol. 10.4 fl (6.2-12.0); Platelet Count 257 K/mm3 (150-450); RBC Distribution Width CV 14.1 % (11.6-14.6); RBC Distribution Width SD 47.8 fl (35.1-43.9); Red Blood Count 3.82 M/mm3 (4.6-6.2); White Blood Count 7.3 K/mm3 (4.4-11.0)
[2023-10-05 11:29] LABS: Anion Gap 8 (5-15); BUN 24 mg/dL (7-18); Calcium,Total 8.9 mg/dL (8.5-10.1); Chloride 106 mmol/L (98-107); EST Glomerular Filtration Rate 47 mL/min (>60); Est Glom Filt Rate - Afr Amer 57 mL/min (>60); Glucose 132 mg/dL (74-106); Potassium 3.6 mmol/L (3.5-5.1); Sodium Level 140 mmol/L (136-145); Thyroid Stim Hormone (TSH) 2.29 uIU/mL (0.358-3.74)
== END | disposition home or self-care (01) ==
LOC: MFPLAB 08:32
PROVIDERS: PCP Family Medicine; Visit Provider Family Medicine
DX: N28.9 Disorder of kidney and ureter, unspecified (principal); R53.83 Other fatigue
CPT/HCPCS: 36415; 80048; 84443; 85027

== ENCOUNTER → 2023-12-30 | Outpatient (CLI) | payer MEDICARE, OTHER, SELFPAY ==
[2017-04-22 08:35] VITALS: BMI 26.3
[2023-12-30 17:50] LABS: Anion Gap 3 (5-15); BUN 24 mg/dL (7-18); BUN/Creat Ratio 15.1 RATIO (10-20); Calcium,Total 8.5 mg/dL (8.5-10.1); Chloride 110 mmol/L (98-107); Cholesterol 143 mg/dL (200); Creatinine, Serum 1.59 mg/dL (0.70-1.30); EST Glomerular Filtration Rate 44 mL/min (>60); Est Glom Filt Rate - Afr Amer 53 mL/min (>60); Glucose 95 mg/dL (74-106); High Density Lipoprotein 54 mg/dL; Potassium 3.7 mmol/L (3.5-5.1); Sodium Level 141 mmol/L (136-145); Triglycerides 171 mg/dL; Very Low Density Lipoprotein 34 mg/dL (5-40)
--- OUTSIDE RECORDS SUMMARY | 2023-12-30 18:53 | XMS RPT_ITS | CCD ---
Author Name Unknown Address [address] [place] [id number] Organization [facility] Care Team Providers Care Sewage Plant Supervisor Name Role Phone DIXON Quintanilla Sue M Unavailable Unavailable DIXON Quintanilla Sue M Unavailable Unavailable DeFinis, Harumi Y Unavailable Unavailable Mar Navarrete Unavailable Unavailable Mar Navarrete Unavailable Unavailable Allergies Allergy Classification Reported Allergen(s) Allergy Type Date of Onset Reaction(s) Facility (8 sources) clopidogrel; Translations: [PLAVIX] Drug Allergy 03-31-2017 Nausea [facility] Work Phone: (5 sources) lisinopril Drug Allergy 04-03-2014 cough [facility] Work Phone: Medications Completed/Discontinued Medications Medication Drug Class(es) Dates Sig (Normalized) Sig (Original) allopurinol 100 mg oral tablet (20 sources) Xanthine Oxidase Inhibitor Start: 07-14-2016 End: 01-23-2017 take 1 tablet by mouth three times daily ALLOPURINOL 100 MG TABS One tablet by mouth three times daily ALLOPURINOL [id number] Danny Easley MD Problems Active Problems Problem Classification Problem Date Documented Date Episodic/Chronic Cardiac dysrhythmias (5 sources) Ventricular premature beats; Translations: [Ventricular premature depolarization] Onset: 04-09-2016 04-09-2016 Chronic Conduction disorders (9 sources) Cardiac pacemaker in situ; Translations: [Presence of cardiac pacemaker] Onset: 03-04-2011 03-04-2011 Chronic Coronary atherosclerosis and other heart disease (4 sources) Atherosclerotic heart disease of tribe coronary artery without angina pectoris; Translations: [Atherosclerotic heart disease of tribe coronary artery without angina pectoris] Onset: 04-06-2017 04-06-2017 Chronic Disorders of lipid metabolism (5 sources) Hyperlipidemia; Translations: [Hyperlipidemia, unspecified] Onset: 03-04-2011 03-04-2011 Chronic Essential hypertension (5 sources) Hypertensive disorder; Translations: [Essential (primary) hypertension] Onset: 03-04-2011 03-04-2011 Chronic Fransisca-; endo-; and myocarditis; cardiomyopathy (10 sources) Dilated cardiomyopathy; Translations: [Cardiomyopathy in diseases classified elsewhere] Onset: 03-04-2011 03-04-2011 Chronic Unclassified (4 sources) 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 ; Translations: [Presence of cardiac and vascular implant and graft, unspecified] Onset: 05-04-2017 05-04-2017 Unclassified (5 sources) Long-term drug therapy; Translations: [Other shelter (current) drug therapy] Onset: 03-04-2011 03-04-2011 Past or Other Problems Problem Classification Problem Date Documented Date Episodic/Chronic Fluid and electrolyte disorders (5 sources) Hypokalemia; Translations: [Hypokalemia] Onset: 03-04-2011 03-04-2011 Episodic Malaise and fatigue (5 sources) Fatigue; Translations: [Other fatigue] Onset: 05-31-2015 05-31-2015 Episodic Nonspecific chest pain (5 sources) Chest pain, unspecified; Translations: [Chest pain, unspecified] Onset: 05-30-2011 05-30-2011 Episodic Unclassified (10 sources) Abnormal result of cardiovascular function study, unspecified; Translations: [Abnormal result of cardiovascular function study, unspecified] Onset: 06-06-2011 06-06-2011 Episodic Unclassified (20 sources) Body mass index (BMI) 28.0-28.9, adult; Translations: [Body mass index (BMI) 26.0-26.9, adult] Onset: 10-02-2014 05-31-2015 Episodic Results Test Name Value Interpretation Reference Range Facil ity Vital Signs Date Time Vital Sign Value Performing Clinician Varinder peacock 09-08-2017 09:14-0400 BMI (Body Mass Index) 26.72 kg/m2 Mar [facility] Work Phone: 09-08-2017 09:14-0400 BP Diastolic 80 mm[Hg] [facility] Work Phone: 09-08-2017 09:14-0400 BP Systolic 130 mm[Hg] Chantalle Landon [facility] Work Phone: 09-08-2017 09:14-0400 Height 182.88 cm Mar aNvarrete [facility] Work Phone: 09-08-2017 09:14-0400 Pulse (Heart Rate) 60 /min Mar Navarrete [facility] Work Phone: 09-08-2017 09:14-0400 Weight 89.36 kg Mar Navarrete [facility] Work Phone: 08-05-2017 13:19-0400 Respiratory Rate 20 /min Mar Navarrete [facility] Work Phone: 05-11-2017 15:07-0400 Height 182.88 cm Mar Navarrete [facility] Work Phone: 05-11-2017 15:07-0400 Weight 88 kg Mar Navarrete [facility] Work Phone: 03-12-2017 15:00-0400 BMI (Body Mass Index) 26.23 kg/m2 Abbie [facility] Work Phone: 03-12-2017 15:00-0400 BP Diastolic 64 mm[Hg] Harumi DeFinis [facility] Work Phone: 03-12-2017 15:00-0400 BP Systolic 120 mm[Hg] Harumi DeFinis [facility] Work Phone: 03-12-2017 15:00-0400 Height 182.88 cm Harumi DeFinis [facility] Work Phone: 03-12-2017 15:00-0400 Pulse (Heart Rate) 74 /min Harchris DeFinis [facility] Work Phone: 03-12-2017 15:00-0400 Pulse Oximetry 98 % Harumi DeFinis [facility] Work Phone: 03-12-2017 15:00-0400 Respiratory Rate 18 /min Harumi DeFinis [facility] Work Phone: 03-12-2017 15:00-0400 Weight 87.73 kg Abbie [facility] Work Phone: 07-14-2016 14:20-0400 BSA (Body Surface Area) 2.13 m2 [facility] Work Phone: 04-03-2014 14:52-0400 BP Diastolic 74 mm[Hg] [employer] [facility] Work Phone: 04-03-2014 14:52-0400 BP Systolic 146 mm[Hg] Abbie [facility] Work Phone: Procedures Date Procedure Procedure Detail Performing Clinician Start: 10-14-2017 End: 10-14-2017 Program eval implantable in prsn multi ld pacer Danny Easley MD Start: 09-08-2017 End: 09-08-2017 Ecg routine ecg w/least 12 lds w/i&r Danny Easley MD Start: 09-08-2017 End: 09-08-2017 Follow Up Appt 1 month Alicia unger PA-C Work Phone: Start: 09-08-2017 End: 09-08-2017 Program eval implantable in prsn multi ld pacer Alicia De Leon PA-C Work Phone: Start: 08-05-2017 End: 08-05-2017 Follow Up Appt 6 months Alicia bridges PA-C Work Phone: Start: 08-05-2017 End: 08-05-2017 PF Alicia De Leon PA-C Work Phone: Start: 08-05-2017 End: 08-10-2017 Program eval implantable in prsn multi ld pacer Danny Easley MD Start: 06-29-2017 End: 07-29-2017 Follow Up Appt 1 month Danny Easley MD Start: 06-29-2017 End: 07-29-2017 Pacer Clinic Danny Easley MD Start: 06-29-2017 End: 06-29-2017 Program eval implantable in prsn multi ld pacer Danny Easley MD Start: 05-11-2017 End: 07-29-2017 Follow Up Appt 4 months Danny Easley MD Start: 05-11-2017 End: 07-29-2017 MMM Danny Easley MD Start: 05-04-2017 End: 07-29-2017 Follow Up Appt 2 months Danny Easley MD Start: 05-04-2017 End: 05-04-2017 Nurse, Teaching, Wound Check (no charge) Danny Easley MD Start: 05-04-2017 End: 07-29-2017 Pacer Clinic Danny Easley MD Start: 05-04-2017 End: 05-05-2017 Program eval implantable in prsn multi ld pacer Danny Easley MD Start: 04-06-2017 End: 05-04-2017 *BMP Danny Easley MD Start: 04-06-2017 End: 05-04-2017 aPTT in Platelet poor plasma by Coagulation assay Jorge Alberto GALLAGHER-C Start: 04-06-2017 End: 04-08-2017 CBC W Auto Differential panel - Blood Danny Easley MD Start: 04-06-2017 End: 05-04-2017 Ecg routine ecg w/least 12 lds w/i&r Danny Easley MD Start: 04-06-2017 End: 04-06-2017 Follow Up Appt Other Jorge Alberto De Luna SERVICE ORDER DISPATCHER-C Start: 04-06-2017 End: 05-04-2017 INR in Platelet poor plasma by Coagulation assay Jorge Alberto MOTAP-C Start: 04-06-2017 End: 05-04-2017 Prq trluml coronary stent w/angio one art/brnch Danny Easley MD Start: 03-23-2017 End: 03-26-2017 *ROSIBEL Easley MD Start: 03-16-2017 End: 03-18-2017 *ROSIBEL Easley MD Start: 03-12-2017 End: 03-12-2017 Follow Up Appt Other Alicia almonte PA-C Work Phone: Start: 02-04-2017 End: 03-16-2017 *ROSIBEL Easley MD Start: 02-04-2017 End: 03-16-2017 aPTT in Platelet poor plasma by Coagulation assay Danny Easley MD Start: 02-04-2017 End: 03-16-2017 CBC W Auto Differential panel - Blood Danny Easley MD Start: 02-04-2017 End: 03-19-2017 Chest x-ray Danny Easley MD Start: 02-04-2017 End: 03-12-2017 Ecg routine ecg w/least 12 lds w/i&r Danny Easley MD Start: 02-04-2017 End: 03-16-2017 INR in Platelet poor plasma by Coagulation assay Danny Easley MD Start: 02-04-2017 End: 05-04-2017 Left Heart Cath Danny Easley MD Start: 02-02-2017 End: 03-19-2017 *ROSIBEL Easley MD Start: 01-23-2017 End: 02-02-2017 *ROSIBEL Easley MD Start: 01-23-2017 End: 01-23-2017 Device Interrogation Danny Easley MD Start: 01-23-2017 End: 01-23-2017 Ecg routine ecg w/least 12 lds w/i&r Danny Easley MD Start: 01-23-2017 End: 03-06-2017 Follow Up Appt 3 months Danny Easley MD Start: 01-23-2017 End: 01-23-2017 Follow Up Appt 6 months Danny Easley MD Start: 01-23-2017 End: 01-23-2017 MMM Danny Easley MD Start: 01-23-2017 End: 02-04-2017 Nuclear stress test -Lexiscan Danny Easley MD Start: 01-23-2017 End: 03-06-2017 Pacer Clinic Danny Easley MD Start: 01-23-2017 End: 01-26-2017 Program eval implantable in prsn multi ld pacer Danny Easley MD Start: 01-23-2017 End: 02-02-2017 Thyrotropin [Units/volume] in Serum or Plasma Danny Easley MD Start: 01-23-2017 End: 02-02-2017 Thyroxine (T4) [Mass/volume] in Serum or Plasma Danny Easley MD Start: 10-21-2016 End: 03-19-2017 *Hepatic Function Panel Danny Easley MD Start: 10-21-2016 End: 03-19-2017 Lipid 1996 panel - Serum or Plasma Danny Easley MD Start: 10-13-2016 End: 03-06-2017 Follow Up Appt 3 months Danny Easley MD Start: 10-13-2016 End: 03-06-2017 Pacer Clinic Danny Easley MD Start: 10-13-2016 End: 10-13-2016 Program eval implantable in prsn multi ld pacer Danny Easley MD Start: 07-14-2016 End: 03-06-2017 Echocardiography Danny Easley MD Start: 07-14-2016 End: 03-06-2017 Follow Up Appt 3 months Danny Easley MD Start: 07-14-2016 End: 03-06-2017 Follow Up Appt 6 months Danny Easley MD Start: 07-14-2016 End: 03-06-2017 Pacer Clinic Danny Easley MD Start: 07-14-2016 End: 03-06-2017 PFM Danny Easley MD Start: 07-14-2016 End: 07-15-2016 Program eval implantable in prsn multi ld pacer Danny Easley MD Start: 06-23-2016 End: 07-01-2016 24 hour holter monitor Danny Easley MD Start: 05-05-2016 End: 03-06-2017 *BMP Danny Easley MD Start: 05-05-2016 End: 03-06-2017 Magnesium [Mass/volume] in Serum or Plasma Danny Easley MD Start: 04-28-2016 End: 04-29-2016 Referral to surgical manager Danny noyola MD Start: 04-09-2016 End: 04-21-2016 *BMP Danny Easley MD Start: 04-09-2016 End: 04-21-2016 *CBC with Differential Danny Easley MD Start: 04-09-2016 End: 04-21-2016 *Hepatic Function Panel Danny Easley MD Start: 04-09-2016 End: 06-05-2016 24 hour holter monitor Danny Easley MD Start: 04-09-2016 End: 03-06-2017 Follow Up Appt 3 months Danny Easley MD Start: 04-09-2016 End: 04-21-2016 Lipid 1996 panel - Serum or Plasma Danny Easley MD Start: 04-09-2016 End: 04-21-2016 Magnesium [Mass/volume] in Serum or Plasma Danny Easley MD Start: 04-09-2016 End: 06-05-2016 Pacer Clinic Danny Easley MD Start: 04-09-2016 End: 04-09-2016 PFM Danny Easley MD Start: 04-09-2016 End: 04-09-2016 Program eval implantable in prsn multi ld pacer Danny Easley MD Start: 04-09-2016 End: 04-21-2016 Thyrotropin [Units/volume] in Serum or Plasma Danny Easley MD Start: 04-09-2016 End: 04-21-2016 Thyroxine (T4) [Mass/volume] in Serum or Plasma Danny Easley MD Start: 04-02-2016 End: 06-05-2016 Echocardiography Danny Easley MD Start: 03-07-2016 End: 06-05-2016 Follow Up Appt 1 month Danny Easley MD Start: 03-07-2016 End: 06-05-2016 Pacer Clinic Danny Easley MD Start: 03-07-2016 End: 03-07-2016 Program eval implantable in prsn multi ld pacer Danny Easley MD Start: 01-21-2016 End: 06-05-2016 Echocardiography Danny Easley MD Start: 01-18-2016 End: 01-18-2016 Follow Up Appt Other Danny Easley MD Start: 01-08-2016 End: 01-21-2016 Follow Up Appt 3 months Danny Easley MD Start: 01-08-2016 End: 01-21-2016 Pacer Clinic Danny Easley MD Start: 01-08-2016 End: 01-08-2016 Program eval implantable in prsn multi ld pacer Danny Easley MD Start: 10-05-2015 End: 01-21-2016 Echocardiography Danny Easley MD Start: 10-05-2015 End: 10-05-2015 Follow Up Appt 6 months Alicia bridges PA-C Work Phone: Start: 10-05-2015 End: 01-21-2016 Pacer Clinic Danny Easley MD Start: 10-05-2015 End: 10-05-2015 [facility] Alicia De Leon PA-C Work Phone: Start: 10-05-2015 End: 10-05-2015 Program eval implantable in prsn multi ld pacer Danny Easley MD Start: 07-05-2015 End: 07-05-2015 *BMP Danny Easley MD Start: 07-05-2015 End: 09-28-2015 Follow Up Appt 3 months Danny Easley MD Start: 07-05-2015 End: 09-28-2015 Pacer Clinic Danny Easley MD Start: 07-05-2015 End: 07-05-2015 Program eval implantable in prsn multi ld pacer Danny Easley MD Start: 06-28-2015 End: 06-28-2015 *Hepatic Function Panel Danny Easley MD Start: 06-28-2015 End: 06-28-2015 Lipid 1996 panel - Serum or Plasma Danny Easley MD Start: 06-27-2015 End: 06-28-2015 *BMP Danny Easely MD Start: 06-19-2015 End: 06-25-2015 *BMP Danny Easley MD Start: 06-19-2015 End: 06-25-2015 *Hepatic Function Panel Danny Easley MD Start: 06-19-2015 End: 06-25-2015 Lipid 1996 panel - Serum or Plasma Danny Easley MD Start: 05-31-2015 End: 06-01-2015 Documentation of current medications Danny Easley MD Start: 05-31-2015 End: 09-28-2015 Echocardiography Danny Easley MD Start: 05-31-2015 End: 05-31-2015 Follow Up Appt 6 months Danny Easley MD Start: 05-31-2015 End: 05-31-2015 PFM Danny Easley MD Start: 04-04-2015 End: 04-04-2015 Device Interrogation Danny Easley MD Start: 04-04-2015 End: 04-05-2015 Documentation of current medications Danny Easley MD Start: 04-04-2015 End: 09-28-2015 Echocardiography Danny Easley MD Start: 04-04-2015 End: 09-28-2015 Follow Up Appt 3 months Danny Easley MD Start: 04-04-2015 End: 04-04-2015 Follow Up Appt 6 months Danny Easley MD Start: 04-04-2015 End: 01-21-2016 Follow Up Appt Other Danny Easley MD Start: 04-04-2015 End: 04-04-2015 MMM Danny Easley MD Start: 04-04-2015 End: 04-05-2015 Program eval implantable in prsn multi ld pacer Danny Easley MD Start: 01-02-2015 End: 09-28-2015 Follow Up Appt 3 months Alicia bridges PA-C Work Phone: Start: 01-02-2015 End: 09-28-2015 [facility] Alicia De Leon PA-C Work Phone: Start: 01-02-2015 End: 01-02-2015 Program eval implantable in prsn multi ld pacer Alicia De Leon PA-C Work Phone: Start: 10-02-2014 End: 09-28-2015 Follow Up Appt 3 months Danny Easley MD Start: 10-02-2014 End: 09-28-2015 Follow Up Appt Other [facility] Work Phone: Start: 10-02-2014 End: 09-28-2015 Pacer Clinic Danny Easley MD Start: 10-02-2014 End: 09-28-2015 [facility] Alicia De Leon PA-C Work Phone: Start: 10-02-2014 End: 10-02-2014 Program eval implantable in prsn multi ld pacer Danny Easley MD Start: 06-16-2014 End: 09-20-2014 Follow Up Appt 3 months Danny Easley MD Start: 06-16-2014 End: 09-20-2014 Pacer Clinic Danny Easley MD Start: 06-16-2014 End: 06-16-2014 Program eval implantable in prsn multi ld pacer Danny Easley MD Start: 04-03-2014 End: 04-03-2014 Follow Up Appt 6 months Danny Easley MD Start: 04-03-2014 End: 04-03-2014 MMM Danny Easley MD Start: 03-16-2014 End: 09-20-2014 Follow Up Appt 3 months Danny Easley MD Start: 03-16-2014 End: 09-20-2014 Pacer Clinic Danny Easley MD Start: 03-16-2014 End: 03-16-2014 Program eval implantable in prsn multi ld pacer Danny Easley MD Start: 01-14-2014 End: 04-10-2015 *Hepatic Function Panel Alicia bridges PA-C Work Phone: Start: 01-14-2014 End: 04-10-2015 Lipid 1996 panel - Serum or Plasma Alicia De Leon PA-C Work Phone: Start: 12-09-2013 End: 09-20-2014 Follow Up Appt 3 months Danny Easley MD Start: 12-09-2013 End: 09-20-2014 Pacer Clinic Danny Easley MD Start: 12-09-2013 End: 12-09-2013 Program eval implantable in prsn multi ld pacer Danny Easley MD Start: 09-28-2013 End: 09-28-2013 Follow Up Appt 6 months Danny Easley MD Start: 09-28-2013 End: 09-28-2013 Follow Up BP Check Danny Easley MD Start: 09-28-2013 End: 09-28-2013 PFM Danny Easley MD Start: 08-10-2013 End: 09-28-2013 Follow Up Appt 3 months Danny Easley MD Start: 08-10-2013 End: 09-28-2013 Pacer Clinic Danny Easley MD Start: 08-10-2013 End: 08-10-2013 Program eval implantable in prsn multi ld pacer Danny Easley MD Start: 05-09-2013 End: 09-28-2013 Follow Up Appt 3 months Danny Easley MD Start: 05-09-2013 End: 09-28-2013 Pacer Clinic Danny Easley MD Start: 05-09-2013 End: 05-09-2013 Program eval implantable in prsn multi ld pacer Danny Easley MD Start: 01-26-2013 End: 09-28-2013 Follow Up Appt 3 months Danny Easley MD Start: 01-26-2013 End: 09-28-2013 Pacer Clinic Danny Easley MD Start: 01-26-2013 End: 01-26-2013 Program eval implantable in prsn multi ld pacer Danny Easley MD Start: 10-15-2012 End: 09-28-2013 *Hepatic Function Panel John Carter MD Start: 10-15-2012 End: 10-15-2012 Follow Up Appt 1 year John Carter MD Start: 10-15-2012 End: 09-28-2013 Lipid 1996 panel - Serum or Plasma John Carter MD Start: 04-06-2012 End: 09-20-2014 *Hepatic Function Panel John Carter MD Start: 04-06-2012 End: 04-06-2012 Ecg routine ecg w/least 12 lds w/i&r John Carter MD Start: 04-06-2012 End: 04-06-2012 eRx Transmitted during this visit (Medicare only) John Carter MD Start: 04-06-2012 End: 04-06-2012 Follow Up Appt 6 months John Carter MD Start: 04-06-2012 End: 09-20-2014 Lipid 1996 panel - Serum or Plasma John Carter MD Start: 04-05-2012 End: 04-06-2012 *Hepatic Function Panel John Carter MD Start: 04-05-2012 End: 04-06-2012 Lipid 1996 panel - Serum or Plasma John Carter MD Start: 01-01-2012 End: 01-05-2012 *BMP John Carter MD Start: 01-01-2012 End: 01-05-2012 *CBC with Differential John Carter MD Start: 01-01-2012 End: 01-05-2012 *Hepatic Function Panel John Carter MD Start: 01-01-2012 End: 01-05-2012 *UA - Urinalysis John Carter MD Start: 01-01-2012 End: 01-05-2012 aPTT in Platelet poor plasma by Coagulation assay John Carter MD Start: 01-01-2012 End: 01-05-2012 Chest x-ray John Carter MD Start: 01-01-2012 End: 01-01-2012 Follow Up Appt 3 months John Carter MD Start: 01-01-2012 End: 01-05-2012 INR in Platelet poor plasma by Coagulation assay John Carter MD Start: 01-01-2012 End: 01-05-2012 Lipid 1996 panel - Serum or Plasma John Carter MD Start: 01-01-2012 End: 01-05-2012 Magnesium [Mass/volume] in Serum or Plasma John Carter MD Start: 01-01-2012 End: 01-05-2012 Methicillin resistant Staphylococcus aureus (MRSA) DNA [Presence] in Unspecified specimen by DON with probe detection John Carter MD Plan of Treatment Date Care Activity Detail Author Start: 04-19-2018 End: 04-19-2018 Appointment Appointment [facility] Work Phone: Start: 11-11-2017 End: 11-11-2017 Appointment Appointment [facility] Work Phone: Start: 10-14-2017 End: 10-14-2017 Appointment Appointment [facility] Work Phone: Start: 10-14-2017 End: 10-14-2017 Follow Up Appt 1 month Follow Up Appt 1 month [facility] Work Phone: Start: 10-14-2017 End: 10-14-2017 Pacer Clinic [facility] Work Phone: Start: 09-08-2017 End: 09-08-2017 Follow Up Appt 1 month Follow Up Appt 1 month [facility] Work Phone: Start: 09-08-2017 End: 09-08-2017 Pac[facility] Clinic [facility] Work Phone: Start: 08-05-2017 End: 08-10-2017 Follow Up Appt 2 months Follow Up Appt 2 months [facility] Work Phone: Start: 08-05-2017 End: 08-05-2017 Follow Up Appt 6 months Follow Up Appt 6 months [facility] Work Phone: Start: 08-05-2017 End: 08-10-2017 Pacer Clinic [facility] Work Phone: Start: 08-05-2017 End: 08-05-2017 PFM PFM [facility] Work Phone: Start: 08-05-2017 End: 08-05-2017 Appointment Appointment [facility] Work Phone: Start: 06-29-2017 End: 07-29-2017 Follow Up Appt 1 month Follow Up Appt 1 month [facility] Work Phone: Start: 06-29-2017 End: 07-29-2017 Pacer Clinic [facility] Work Phone: Start: 05-11-2017 End: 07-29-2017 Follow Up Appt 4 months Follow Up Appt 4 months [facility] Work Phone: Start: 05-11-2017 End: 07-29-2017 MMM MMM [facility] Work Phone: Start: 05-04-2017 End: 07-29-2017 Follow Up Appt 2 months Follow Up Appt 2 months [facility] Work Phone: Start: 05-04-2017 End: 07-29-2017 Pacer Clinic [facility] Work Phone: Start: 05-04-2017 End: 05-04-2017 Appointment Appointment [facility] Work Phone: Start: 04-06-2017 End: 05-04-2017 *BMP *BMP [facility] Work Phone: Start: 04-06-2017 End: 05-04-2017 aPTT *PTT-Partial Thromboplastin Time [facility] Work Phone: Start: 04-06-2017 End: 04-08-2017 CBC W Auto Differential panel - Blood *CBC without Diff [facility] Work Phone: Start: 04-06-2017 End: 05-04-2017 Ecg routine ecg w/least 12 lds w/i&r EKG (In office) [facility] Work Phone: Start: 04-06-2017 End: 04-06-2017 Follow Up Appt Other Follow Up Appt Other [facility] Work Phone: Start: 04-06-2017 End: 05-04-2017 INR Coag RelTime (PPP) *PT/INR [facility] Work Phone: Start: 04-06-2017 End: 04-06-2017 Prq trluml coronary stent w/angio one art/brnch Stent [facility] Work Phone: Start: 03-23-2017 End: 03-26-2017 *BMP *BMP [facility] Work Phone: Start: 03-16-2017 End: 03-18-2017 *BMP *BMP [facility] Work Phone: Start: 03-12-2017 End: 03-12-2017 Follow Up Appt Other Follow Up Appt Other [facility] Work Phone: Start: 02-04-2017 End: 03-16-2017 *BMP *BMP [facility] Work Phone: Start: 02-04-2017 End: 03-16-2017 aPTT *PTT-Partial Thromboplastin Time [facility] Work Phone: Start: 02-04-2017 End: 03-16-2017 CBC W Auto Differential panel - Blood *CBC without Diff [facility] Work Phone: Start: 02-04-2017 End: 03-19-2017 Chest x-ray X-Ray, Chest, PA & Lateral [facility] Work Phone: Start: 02-04-2017 End: 03-12-2017 Ecg routine ecg w/least 12 lds w/i&r EKG (In office) [facility] Work Phone: Start: 02-04-2017 End: 03-16-2017 INR Coag RelTime (PPP) *PT/INR [facility] Work Phone: Start: 02-04-2017 End: 03-12-2017 Left Heart Cath Left Heart Cath [facility] Work Phone: Start: 02-02-2017 End: 03-19-2017 *BMP *BMP [facility] Work Phone: Start: 01-23-2017 End: 02-02-2017 *BMP *BMP [facility] Work Phone: Start: 01-23-2017 End: 01-23-2017 Device Interrogation Device Interrogation [facility] Work Phone: Start: 01-23-2017 End: 01-23-2017 Ecg routine ecg w/least 12 lds w/i&r EKG (In office) [facility] Work Phone: Start: 01-23-2017 End: 03-06-2017 Follow Up Appt 3 months Follow Up Appt 3 months [facility] Work Phone: Start: 01-23-2017 End: 01-23-2017 Follow Up Appt 6 months Follow Up Appt 6 months [facility] Work Phone: Start: 01-23-2017 End: 01-23-2017 MMM MMM [facility] Work Phone: Start: 01-23-2017 End: 01-23-2017 Nuclear stress test -Lexiscan Nuclear stress test -Lexiscan [facility] Work Phone: Start: 01-23-2017 End: 03-06-2017 Pacer Clinic Pacer Clinic [facility] Work Phone: Start: 01-23-2017 End: 02-02-2017 Thyroid stimulating hormone (TSH) *TSH [facility] Work Phone: Start: 01-23-2017 End: 02-02-2017 Thyroxine (T4) *T4 (Total) [facility] Work Phone: Start: 10-21-2016 End: 03-19-2017 *Hepatic Function Panel *Hepatic Function Panel [facility] Work Phone: Start: 10-21-2016 End: 03-19-2017 Lipid panel [AGGREGATE] *Lipid Profile CC PCP [facility] Work Phone: Start: 10-13-2016 End: 03-06-2017 Follow Up Appt 3 months Follow Up Appt 3 months [facility] Work Phone: Start: 10-13-2016 End: 03-06-2017 Pacer Clinic [facility] Work Phone: Start: 07-14-2016 End: 07-14-2016 Echocardiography Echocardiogram (limited) [facility] Work Phone: Start: 07-14-2016 End: 03-06-2017 Follow Up Appt 3 months Follow Up Appt 3 months [facility] Work Phone: Start: 07-14-2016 End: 03-06-2017 Follow Up Appt 6 months Follow Up Appt 6 months [facility] Work Phone: Start: 07-14-2016 End: 03-06-2017 Pacer Clinic [facility] Work Phone: Start: 07-14-2016 End: 03-06-2017 PFM PFM [facility] Work Phone: Start: 06-23-2016 End: 06-05-2016 24 hour holter monitor 24 hour holter monitor [facility] Work Phone: Start: 05-05-2016 End: 03-06-2017 *BMP *BMP [facility] Work Phone: Start: 05-05-2016 End: 03-06-2017 Magnesium *Magnesium [facility] Work Phone: Start: 04-28-2016 End: 04-28-2016 Cardiac Referral Cardiac Referral Jaydon Brizuela MD, [facility], [address] [place] [address], [address], [id number] [facility] Work Phone: Start: 04-09-2016 End: 04-21-2016 *BMP *BMP [facility] Work Phone: Start: 04-09-2016 End: 04-21-2016 *CBC with Differential *CBC with Differential [facility] Work Phone: Start: 04-09-2016 End: 04-21-2016 *Hepatic Function Panel *Hepatic Function Panel [facility] Work Phone: Start: 04-09-2016 End: 04-09-2016 24 hour holter monitor 24 hour holter monitor [facility] Work Phone: Start: 04-09-2016 End: 03-06-2017 Follow Up Appt 3 months Follow Up Appt 3 months [facility] Work Phone: Start: 04-09-2016 End: 04-21-2016 Lipid panel [AGGREGATE] *Lipid Profile CC PCP [facility] Work Phone: Start: 04-09-2016 End: 04-21-2016 Magnesium *Magnesium [facility] Work Phone: Start: 04-09-2016 End: 06-05-2016 Pacer Clinic Pacer Clinic [facility] Work Phone: Start: 04-09-2016 End: 04-09-2016 PFM PFM [facility] Work Phone: Start: 04-09-2016 End: 04-21-2016 Thyroid stimulating hormone (TSH) *TSH [facility] Work Phone: Start: 04-09-2016 End: 04-21-2016 Thyroxine (T4) *T4 (Total) [facility] Work Phone: Start: 04-02-2016 End: 03-10-2016 Echocardiography Echocardiogram (limited) [facility] Work Phone: Start: 03-07-2016 End: 06-05-2016 Follow Up Appt 1 month Follow Up Appt 1 month [facility] Work Phone: Start: 03-07-2016 End: 06-05-[address] [facility] [address] [facility] Work Phone: Start: 01-21-2016 End: 01-21-2016 Echocardiography Echocardiogram (complete) [facility] Work Phone: Start: 01-18-2016 End: 01-18-2016 Follow Up Appt Other Follow Up Appt Other [facility] Work Phone: Start: 01-08-2016 End: 01-21-2016 Follow Up Appt 3 months Follow Up Appt 3 months [facility] Work Phone: Start: 01-08-2016 End: 01-21-[address] [facility] [address] [facility] Work Phone: Start: 12-26-2015 End: 06-28-2015 *Hepatic Function Panel *Hepatic Function Panel [facility] Work Phone: Start: 12-26-2015 End: 06-28-2015 Lipid panel [AGGREGATE] *Lipid Profile CC PCP [facility] Work Phone: Start: 10-05-2015 End: 01-21-2016 Follow Up Appt 3 months Follow Up Appt 3 months [facility] Work Phone: Start: 10-05-2015 End: 10-05-2015 Follow Up Appt 6 months Follow Up Appt 6 months [facility] Work Phone: Start: 10-05-2015 End: 01-21-[address] [facility] [address] [facility] Work Phone: Start: 10-05-2015 End: 10-05-2015 PFM PFM [facility] Work Phone: Start: 07-05-2015 End: 07-05-2015 *BMP *BMP [facility] Work Phone: Start: 07-05-2015 End: 09-28-2015 Follow Up Appt 3 months Follow Up Appt 3 months [facility] Work Phone: Start: 07-05-2015 End: 09-28-2015 Pacer Clinic [facility] Work Phone: Start: 06-27-2015 End: 06-28-2015 *BMP *BMP [facility] Work Phone: Start: 06-19-2015 End: 06-25-2015 *BMP *BMP [facility] Work Phone: Start: 06-19-2015 End: 06-25-2015 *Hepatic Function Panel *Hepatic Function Panel [facility] Work Phone: Start: 06-19-2015 End: 06-25-2015 Lipid panel [AGGREGATE] *Lipid Profile CC PCP [facility] Work Phone: Start: 05-31-2015 End: 05-31-2015 Echocardiography Echocardiogram (complete) [facility] Work Phone: Start: 05-31-2015 End: 05-31-2015 Follow Up Appt 6 months Follow Up Appt 6 months [facility] Work Phone: Start: 05-31-2015 End: 05-31-2015 PFM PFM [facility] Work Phone: Start: 04-04-2015 End: 04-04-2015 Device Interrogation Device Interrogation [facility] Work Phone: Start: 04-04-2015 End: 09-28-2015 Follow Up Appt 3 months Follow Up Appt 3 months [facility] Work Phone: Start: 04-04-2015 End: 04-04-2015 Follow Up Appt 6 months Follow Up Appt 6 months [facility] Work Phone: Start: 04-04-2015 End: 01-21-2016 Follow Up Appt Other Follow Up Appt Other [facility] Work Phone: Start: 04-04-2015 End: 04-04-2015 MMM MMM [facility] Work Phone: Start: 04-04-2015 End: 09-28-2015 Pacer Clinic Pacer Clinic [facility] Work Phone: Start: 01-02-2015 End: 09-28-2015 Follow Up Appt 3 months Follow Up Appt 3 months [facility] Work Phone: Start: 01-02-2015 End: 09-28-2015 Pacer Clinic Pacer Clinic [facility] Work Phone: Start: 10-02-2014 End: 09-28-2015 Follow Up Appt 3 months Follow Up Appt 3 months [facility] Work Phone: Start: 10-02-2014 End: 09-28-2015 Follow Up Appt Other Follow Up Appt Other [facility] Work Phone: Start: 10-02-2014 End: 09-28-2015 Pacer Clinic Pacer Clinic [facility] Work Phone: Start: 10-02-2014 End: 09-28-2015 PFM PFM [facility] Work Phone: Start: 06-16-2014 End: 09-20-2014 Follow Up Appt 3 months Follow Up Appt 3 months [facility] Work Phone: Start: 06-16-2014 End: 09-20-2014 Pacer Clinic Pacer Clinic [facility] Work Phone: Start: 04-03-2014 End: 04-03-2014 Follow Up Appt 6 months Follow Up Appt 6 months [facility] Work Phone: Start: 04-03-2014 End: 04-03-2014 MMM MMM [facility] Work Phone: Start: 03-16-2014 End: 09-20-2014 Follow Up Appt 3 months Follow Up Appt 3 months [facility] Work Phone: Start: 03-16-2014 End: 09-20-2014 Pacer Clinic Pacer Clinic [facility] Work Phone: Start: 01-14-2014 End: 09-30-2013 *Hepatic Function Panel *Hepatic Function Panel [facility] Work Phone: Start: 01-14-2014 End: 09-30-2013 Lipid panel [AGGREGATE] *Lipid Profile CC PCP [facility] Work Phone: Start: 12-09-2013 End: 09-20-2014 Follow Up Appt 3 months Follow Up Appt 3 months [facility] Work Phone: Start: 12-09-2013 End: 09-20-2014 Pacer Clinic Pacer Clinic [facility] Work Phone: Start: 09-28-2013 End: 09-28-2013 Follow Up Appt 6 months Follow Up Appt 6 months [facility] Work Phone: Start: 09-28-2013 End: 09-28-2013 Follow Up BP Check Follow Up BP Check [facility] Work Phone: Start: 09-28-2013 End: 09-28-2013 PFM PFM [facility] Work Phone: Start: 08-10-2013 End: 09-28-2013 Follow Up Appt 3 months Follow Up Appt 3 months [facility] Work Phone: Start: 08-10-2013 End: 09-28-2013 Pacer Clinic Pacer Clinic [facility] Work Phone: Start: 05-09-2013 End: 09-28-2013 Follow Up Appt 3 months Follow Up Appt 3 months [facility] Work Phone: Start: 05-09-2013 End: 09-28-2013 Pacer Clinic Pacer Clinic [facility] Work Phone: Start: 01-26-2013 End: 09-28-2013 Follow Up Appt 3 months Follow Up Appt 3 months [facility] Work Phone: Start: 01-26-2013 End: 09-28-2013 Pacer Clinic Pacer Clinic [facility] Work Phone: Start: 10-15-2012 End: 09-28-2013 *Hepatic Function Panel *Hepatic Function Panel [facility] Work Phone: Start: 10-15-2012 End: 10-15-2012 Follow Up Appt 1 year Follow Up Appt 1 year [facility] Work Phone: Start: 10-15-2012 End: 09-28-2013 Lipid panel [AGGREGATE] *Lipid Profile [facility] Work Phone: Start: 04-06-2012 End: 09-20-2014 *Hepatic Function Panel *Hepatic Function Panel [facility] Work Phone: Start: 04-06-2012 End: 04-06-2012 Ecg routine ecg w/least 12 lds w/i&r EKG (In office) [facility] Work Phone: Start: 04-06-2012 End: 04-06-2012 Follow Up Appt 6 months Follow Up Appt 6 months [facility] Work Phone: Start: 04-06-2012 End: 09-20-2014 Lipid panel [AGGREGATE] *Lipid Profile [facility] Work Phone: Start: 04-05-2012 End: 04-06-2012 *Hepatic Function Panel *Hepatic Function Panel [facility] Work Phone: Start: 04-05-2012 End: 04-06-2012 Lipid panel [AGGREGATE] *Lipid Profile [facility] Work Phone: Start: 01-01-2012 End: 01-05-2012 *BMP *BMP [facility] Work Phone: Start: 01-01-2012 End: 01-05-2012 *CBC with Differential *CBC with Differential [facility] Work Phone: Start: 01-01-2012 End: 01-05-2012 *Hepatic Function Panel *Hepatic Function Panel [facility] Work Phone: Start: 01-01-2012 End: 01-05-2012 *UA - Urinalysis *UA - Urinalysis [facility] Work Phone: Start: 01-01-2012 End: 01-05-2012 aPTT *PTT-Partial Thromboplastin Time [facility] Work Phone: Start: 01-01-2012 End: 01-05-2012 Chest x-ray X-Ray, Chest, PA & Lateral [facility] Work Phone: Start: 01-01-2012 End: 01-01-2012 Follow Up Appt 3 months Follow Up Appt 3 months [facility] Work Phone: Start: 01-01-2012 End: 01-05-2012 INR Coag RelTime (PPP) *PT/INR [facility] Work Phone: Start: 01-01-2012 End: 01-05-2012 Lipid panel [AGGREGATE] *Lipid Profile [facility] Work Phone: Start: 01-01-2012 End: 01-05-2012 Magnesium *Magnesium [facility] Work Phone: Start: 01-01-2012 End: 01-05-2012 MRSA presence *MRSAD - M R Staph Aureus DNA by PCR [employer] Work Phone: Patient Education HYPERLIPIDEMIA , CHOLESTEROL%20AND%20YOUR% 20HEALTH [facility] Work Phone: Additional Source Comments FOR RECORDS PERTAINING TO PATIENTS WHO ARE OR HAVE BEEN ENROLLED IN A CHEMICAL DEPENDENCY/SUBSTANCEABUSE PROGRAM, SOME INFORMATION MAY BE OMITTED. This clinical summary was aggregated from multiple sources. Caution should be exercised in using it in the provision of clinical care. This summary normalizes information from multiple sources, and as a consequence, information in this document may materially change the coding, format and clinical context of patient data. In addition, data may be omitted in some cases. CLINICAL DECISIONS SHOULD BE BASED ON THE PRIMARY CLINICAL RECORDS. [employer] [facility]. provides no warranty or guarantee of the accuracy or completeness of information in this document.
== END | disposition home or self-care (01) ==
PROVIDERS: PCP Family Medicine; Visit Provider Family Medicine
DX: I10 Essential (primary) hypertension (principal)
CPT/HCPCS: 36415; 80048; 80061

== ENCOUNTER 2024-02-25 13:00 | Outpatient (RCR) | payer MEDICARE, OTHER, SELFPAY ==
[2017-04-22 08:35] VITALS: BMI 26.3
--- NOTE | 2024-01-20 14:19 | HP.PTEVAL ---
Patient's Visit Information Visit Information Visit Information: DERRICK GALLEGOS is a 83 year old M referred to Physical Therapy by Dr. Danny Velasquez MD with a diagnosis of Unsteady gait. Date of Evaluation: 01/20/24 Physical Therapist: Kenyon Abreu, PT, ATC Visit Plan Frequency: 2-3x /Week Duration: 4-6 Weeks Plan: SKTC/DKTC stretches, core stab ex's, B LE strengthening, gait training, nustep, and HEP Subjective Subjective: Pt reports he has had L LE pain for about three weeks. Pt notes he has pain in his L lateral hip and his L knee after he sits for a long period of time. Pt reports the pain is there some days, and other days its not. This has lead to him having decreased balance. Pt notes he has not experienced any falls, but notes he tends to experience LOB often. Pt denies LBP in the past. Pt denies any Hx of L knee or hip surgery. Pt reports when his pain is bad, he sits down and his pain goes away. Pt reports this takes a while, but usually goes away. Then he might stand back up and have none. Pt reports no recent xrays on his LB, hip, or knee. No sleep difficulty at this time secondary to pain. Pt reports he likes to go on walks, but is limited from this secondary to pain. Pt reports he also likes to let his dog outside, and get her mail, which she is no longer able to do secondary to pain. Pain L hip and knee: Pain Intensity (Out of 10): 0 Pain Intensity Range: 7 Objective Objective: Neuro: B LE sensation is WNL to light touch. B patellar reflex= 1/3 ROM: B LE's are WFL when compared bilaterally. Pt is severely limited with L/S extension MMT: B LE's are rated at 4+/5 throughout Repeated movements: JULIO increased pain. SKTC/DKTC NE Special test: All neg hip tests Gait: Pt is able to ambulate 140 feet until feeling tired and needing to rest. Uses cane. 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 For Medicare and Medicare HMO plans, please review the plan of care and approve it. It will need to be FAXED BACK to us at [phone] for Medicare purposes. For Medicare only, by signing this I certify the plan of care. Please let me know if there are questions or concerns regarding this plan of care. Physician Signature: Date:
--- NOTE | 2024-02-25 13:54 | HP.PTREVAL ---
Re-Evaluation Intro: Dr. Danny Velasquez MD, It has been my pleasure to treat DERRICK GALLEGOS over the last 7 visits for Unsteady gait. Please see the progress note below for an update on the physical therapy plan of care! Subjective Subjective: I am ready to be done. And [facility] Objective Objective/Function: 0/10 pain in L knee and hip Pt is able to ambulate 300 feet without difficulty Pt is I with HEP Rx goals achieved Plan Plan Plan: Discharge Balance/Gait/Functional tests Balance/Special Test Scores Lower Extremity Functional Score: 56 Goals Goals Goal 1:: Decrease L hip and knee pain x 50% to aid with sleep Goal Time Frame: 4-6 Weeks Goal Progress: Goal Met Goal 2:: Pt will be able to ambulate greater than 300 feet with LRD and no LOB to promote safe community ambulation Goal Time Frame: 4-6 Weeks Goal Progress: Goal Met Goal 3:: I with HEP Goal Time Frame: 4-6 Weeks Goal Progress: Goal Met Goal 4:: Pt will be able to get his mail and perform other daily activities without limitation Goal Time Frame: 4-6 Weeks Goal Progress: Goal Met Anticipated Interventions Anticipated Interventions Patient/Client Instruction: Educate patient on: Condition and Plan of Care For the Purpose of:: To improve self management Therapeutic Exercise to Include: Strength training, Endurance training, Balance training, Flexibilty training, Gait and locomotor training and Dynamic Lumbar Stabilization For the Purpose of:: To decrease pain, To improve muscle performance and motor function and To increase tolerance to activity/condition/position Re-Evaluation Ending Re-evaluation ending: Please do not hesitate to contact me at [phone] by phone or if you have questions or concerns regarding this new plan of care! Sincerely, Kenyon Abreu, PT, ATC
--- NOTE | 2024-06-22 07:51 | HP.PTDCSUM ---
Discharge Summary D/C summary: It has been my pleasure to treat DERRICK GALLEGOS referred by Dr. Danny Velasquez MD, with the diagnosis of Unsteady gait for a total of 7 visit(s). Discharge Date: Please see the following information for a summary of their discharge status. Subjective Subjective: I am ready to be done. And [facility] Pain L hip and knee: Pain Intensity (Out of 10): 0 Overall Improvement % Improvement: 97 Objective Objective/Function: 0/10 pain in L knee and hip Pt is able to ambulate 300 feet without difficulty Pt is I with HEP Rx goals achieved Goals Goal 1:: Decrease L hip and knee pain x 50% to aid with sleep Goal Progress: Goal Met Goal 2:: Pt will be able to ambulate greater than 300 feet with LRD and no LOB to promote safe community ambulation Goal Progress: Goal Met Goal 3:: I with HEP Goal Progress: Goal Met Goal 4:: Pt will be able to get his mail and perform other daily activities without limitation Goal Progress: Goal Met Plan Plan: Discharge D/C Information d/c sentence: If there are questions or concerns regarding this patient's physical therapy, please feel free to call me at [phone]. Thank you for the referral of this patient. Sincerely, Kenyon Abreu, PT, ATC Balance/Gait/Functional tests Balance/Special Test Scores Lower Extremity Functional Score: 56 Improvement % Improvement: 97
== END 2024-02-25 19:00 | disposition home or self-care (01) ==
LOC: PT 13:00
PROVIDERS: PCP Family Medicine; Referring Provider Family Medicine; Visit Provider Family Medicine
DX: Z91.81 History of falling (principal)
CPT/HCPCS: 97110; 97161; 97164

== ENCOUNTER → 2024-04-04 | Outpatient (CLI) | payer MEDICARE, OTHER, SELFPAY ==
[2017-04-22 08:35] VITALS: BMI 26.3
--- NOTE | 2024-04-04 10:08 | RAD_ITS ---
EXAM: XR CHEST, 2 VIEWS CLINICAL INDICATION: SOB TECHNIQUE: Frontal and lateral views of the chest. COMPARISON: XR Chest dated 10/31/2022 FINDINGS: LUNGS AND PLEURAL SPACES: Diffuse interstitial pulmonary opacities within the right lung and centrally within the left lung which may represent atypical pulmonary edema or interstitial pneumonia. Question small right pleural effusion. HEART: Stable normal heart size. MEDIASTINUM: No mediastinal or hilar mass. BONES/JOINTS: No acute abnormality. TUBES, LINES AND DEVICES: Atrial and biventricular pacemaker wires remain in place. RAD/Chest PA and Lateral IMPRESSION: Bilateral interstitial lung densities which may represent pneumonia or atypical pulmonary edema. Electronically Signed: Solo Carter MD at 10:26 EDT ,
[2024-04-04 12:47] LABS: Absolute Lymphocyte Count 0.94 X10^3/uL (0.83-4.51); Absolute Neutrophil Count 10.6 X10^3/uL (2.0-7.7); Basophil# 0.03 X10^3/uL; Basophil% 0.2 % (0-1); Eosinophil# 0.19 X10^3/uL; Eosinophils% 1.5 % (0-5); Hematocrit 32.1 % (40-54); Lymphocyte # 0.94 X10^3/ul (0.83-4.51); Lymphocyte % 7.4 % (19-41); Mean Corp Hgb Conc 31.2 g/dL (32-36); Mean Corpuscular Hgb 28.1 pg (27.0-32.0); Mean Corpuscular Volume 90.2 fL (80-94); Mean Platelet Vol. 11.9 fl (6.2-12.0); Monocyte# 0.93 X10^3/uL; Monocyte% 7.3 % (0-10); NRBC Flagged by Analyzer 0 % (0-5); Neutrophil # 10.56 X10^3/uL (2.7-7.7); Neutrophil % 83.1 % (47-70); Platelet Count 250 K/mm3 (150-450); RBC Distribution Width CV 15.6 % (11.6-14.6); RBC Distribution Width SD 51.4 fl (35.1-43.9); Red Blood Count 3.56 M/mm3 (4.6-6.2); White Blood Count 12.7 K/mm3 (4.4-11.0)
[2024-04-04 13:01] LABS: Anion Gap 6 (5-15); BUN 34 mg/dL (7-18); BUN/Creat Ratio 22.5 RATIO (10-20); Calcium,Total 8.7 mg/dL (8.5-10.1); Chloride 113 mmol/L (98-107); Creatinine, Serum 1.51 mg/dL (0.70-1.30); EST Glomerular Filtration Rate 47 mL/min (>60); Est Glom Filt Rate - Afr Amer 57 mL/min (>60); Glucose 195 mg/dL (74-106); Potassium 4.1 mmol/L (3.5-5.1); Sodium Level 141 mmol/L (136-145)
[2024-04-04 15:14] LABS: BNP,B-Type NATRIURETIC PEPTIDE 3027.8 pg/mL (0-100)
== END | disposition home or self-care (01) ==
PROVIDERS: PCP Family Medicine; Referring Provider Family Medicine; Visit Provider Family Medicine
DX: R06.02 Shortness of breath (principal)
CPT/HCPCS: 36415; 71046; 80048; 83880; 85025